=== PATIENT | male | born 1995 ===

== ENCOUNTER 2020-09-03 17:06 | Outpatient (REF) | payer OTHER, SELFPAY | END 2020-09-03 17:07 | disposition home or self-care (01) | LOC: HO.LAB 17:06 | PROVIDERS: Visit Provider Internal Medicine | DX: Z20.828 Contact with and (suspected) exposure to other viral communicable diseases (principal) | CPT/HCPCS: C9803; U0003 ==

== ENCOUNTER 2021-10-10 05:34 | Emergency (ER) | payer MEDICAID, SELFPAY ==
--- NOTE | ~2021-10-10 | XR_ITS ---
EXAMINATION: XR CHEST CLINICAL INFORMATION: Cough COMPARISON: 04/09/2020 TECHNIQUE: Frontal view of the chest was obtained. FINDINGS: The lungs are well expanded. There is no focal consolidation, edema, or effusion. No pneumothorax. The cardiomediastinal silhouette is within normal limits. No acute osseous abnormality. XR/XR chest 1V IMPRESSION: Clear lungs.
[2021-10-10 05:51] VITALS: BP 141/80; PULSE 83; RESP 16; TEMP 36.6; O2SAT 96; BMI 39.9
[2021-10-10 06:23] LABS: COVID-19 Test Negative (Negative); IDNOW Serial# 9DD0AD1C
--- NOTE | 2021-10-10 08:24 | ED_ITS ---
HPI - URI/Sore Throat General Chief Complaint: Upper Respiratory Symptoms Stated Complaint: headache, sore throat Time Seen by Provider: 10/10/21 08:08 Source: patient Mode of arrival: ambulatory Limitations: no limitations History of Present Illness HPI Narrative: Patient is a 25-year-old male with no significant medical history. He presents to the emergency department today for evaluation of a sore throat and cough for 2 weeks. The cough is intermittently productive of clear phlegm. Last night he developed a headache. He has not taken any medication for his pain nor cough. Denies fevers, chills, neck pain, vision changes, dizziness, lightheadedness, chest pain, palpitations, shortness of breath, difficulty breathing, nausea, vomiting, abdominal pain. Denies any known sick contacts, or exposure to COVID-19. Patient has been vaccinated for COVID-19 x 2. Patient has a past history of COVID-19 infection greater than 6 months ago. MD elicited complaint: cough, sore throat and other (headache) Onset (ago): week(s) Consistency: intermittent Severity: mild Description of mucous: clear Able to tolerate fluids by mouth: Yes Exacerbating factors: nothing Relieving factors: nothing Treatments prior to arrival: none Related Data Allergies Allergy/AdvReac Type Severity Reaction Status Date / Time No Known Allergies Allergy Verified 10/10/21 05:57 Review of Systems Review of Systems: Constitutional: No weight loss, fever, chills, weakness or fatigue. HEENT: + sore throat. No visual loss, blurred vision, double vision or yellow sclera. No hearing loss, sneezing, congestion, runny nose. Skin: No rash or itching. Cardiovascular: No chest pain, chest pressure or chest discomfort. No palpitations or pedal edema. Respiratory: + cough. No shortness of breath. Gastrointestinal: No anorexia, nausea, vomiting or diarrhea. No abdominal pain or blood in stool. Genitourinary: No burning micturition. No urinary frequency or incontinence. Neurologic: + headache. No dizziness, syncope, unilateral weakness, ataxia, numbness or tingling in the extremities. No change in bowel or bladder control. Musculoskeletal: No muscle pain, back pain, joint pain or stiffness. Psychiatric:No depression or anxiety. Endocrine: No polyuria or polydipsia. [facility] Past Medical History Attestation statement: The following information was validated with the patient. Source: old records reviewed Medical History COVID Social History Social History Advance Directives: No Advance Directives Information Provided: No Physical Exam Vital Signs: Vital Signs: Last Vital Signs Temp 97.8 F 10/10/21 05:51 Pulse 83 10/10/21 05:51 Resp 16 10/10/21 05:51 BP 141/80 H 10/10/21 05:51 Pulse Ox 96 10/10/21 05:51 BMI result Body Mass Index 39.9 Vital signs have been reviewed as normal and appeared to be correct. Blood pressure normal.? Heart rate normal.? Respiration rate normal. Temperature normal.? Oxygen saturation normal. Appearance: Alert.?Oriented to person, place and time. No acute distress.?Normal affect. Head: Normocephalic, atraumatic. No head, sinus or TMJ tenderness.? Eyes: Sclera white, conjunctiva pink. PERRL, 3 mm bilaterally. EOMi.?No Nystasmus. Ears: Bilateral ear canals clear, TM visible with good cone of light.? Nose: Nasal mucosa pink and moist with midline septum, nares patent bilaterally.? Mouth/ Throat: Oral mucosa pink and moist without lesions. Pharynx without exudate, tonsils symmetric, no adenopathy.?? Neck: Normal inspection.? Neck supple.?? CVS: Heart sounds normal. Normal heart rate and rhythm.? Pulses normal.?? Respiratory: No respiratory distress.? Lung sounds clear to auscultation bilaterally?? Abdomen: Soft and non-tender. Skin: Skin warm and dry.? Normal skin color.? Normal skin turgor.?? Extremities: No lower extremity edema.? Neuro: Moves all extremities spontaneously. Course Course Course Narrative: Patient is a 25-year-old male who presents to the emergency department with concerns about cough, sore throat, and headache. COVID-19 testing was performed which was negative. Chest x-ray reveals no focal consolidation, edema, or effusion. Given duration of his pharyngitis, received strep pyogenes SAROJ testing which was negative. Reviewed results with patient, discussed return precautions, [id number] treatment. Patient agreeable plan for discharge home, provided with a work note at his request. MDM - URI/Sore Throat Medical Records Attestation: I reviewed the patient's medical records. Lab Data Attestation: I reviewed the patient's lab results. Labs: Lab Results 10/10/21 10/10/21 Range/Units 05:58 08:24 COVID-19 (BRANDON) Negative (Negative) COVID-19 Clin Com See Note S. pyogenes GrpA SAROJ Negative (Negative) Discharge Plan Discharge Clinical Impression: Headache, Pharyngitis Patient Disposition: Home, Self-Care Instructions: Pharyngitis (ED), General Headache (ED) Additional Instructions: You were evaluated in the emergency department today for your concerns about a sore throat and headache that began earlier this morning. Your COVID-19 testing was negative. We tested you for strep throat, bacterial infection of the throat which was also negative. At this time you can use Tylenol or ibuprofen as needed for pain, throat lozenges and analgesics throat spray which can be purchased at the pharmacy. Please return to the emergency department with any new or worsening concerns, he may also follow-up with your primary care provider Stand Alone Forms: Work/School Release Discharge Date/Time: 10/10/21 09:30 Print Language: Chinese
[2021-10-10 08:46] LABS: IDNOW Serial# 9DD0AD1C; Strep A Nucleic Acid Negative (Negative)
== END 2021-10-10 09:30 | disposition home or self-care (01) ==
PROVIDERS: Nurse Practitioner Family; Emergency Provider Emergency Medicine Emergency Medical Services
DX: R51.9 Headache, unspecified (principal); J02.9 Acute pharyngitis, unspecified; Z20.822 Contact with and (suspected) exposure to COVID-19
CPT/HCPCS: 36415; 71045; 87635; 87651; 99283

== ENCOUNTER → 2021-12-20 13:19 | Outpatient (BNVA) | payer OTHER, SELFPAY | PROVIDERS: Referring Provider Family Medicine; Visit Provider Physician Assistant Surgical ==

== ENCOUNTER → 2022-01-29 08:38 | Outpatient (BNVA) | payer MEDICAID, SELFPAY | PROVIDERS: PCP Family Medicine; Referring Provider Family Medicine; Visit Provider Physician Assistant Surgical | DX: E66.9 Obesity, unspecified (principal); Z68.38 Body mass index [BMI] 38.0-38.9, adult | CPT/HCPCS: 99202 ==

== ENCOUNTER 2023-08-12 10:53 | Emergency (ER) | payer MEDICAID, SELFPAY ==
[2023-08-12 11:02] VITALS: BP 127/73; PULSE 98; RESP 18; TEMP 36.6; O2SAT 96; BMI 39.7
[2023-08-12 11:16] LABS: MANUAL DIFF FLAG NO
[2023-08-12 11:18] LABS: Basophils Absolute Auto 0.1 X10*3/uL (0.0-0.2); Basophils Percent Auto 0.7 % (0-2); Eosinophils Percent Auto 0.2 % (0-4); Hematocrit 44.9 % (42.0-52.0); Hemoglobin 16.1 g/dl (14.0-18.0); Imm Gran Abs Auto 0.05 X10*3/uL (0.00-0.03); Imm Gran Pct Auto 0.3 % (0.0-0.4); Lymphocytes Absolute Auto 1.3 X10*3/uL (1.2-4.9); Lymphocytes Percent Auto 8.3 % (20-40); Mean Corpuscular HGB Conc 35.9 g/dl (31.0-36.0); Mean Corpuscular Hemoglobin 30.5 pg (27.0-33.0); Mean Platelet Volume 12.2 fL (9.4-12.4); Monocytes Absolute Auto 0.8 X10*3/uL (0.1-1.2); Monocytes Percent Auto 4.9 % (2-11); Neutrophils Percent Auto 85.6 % (45-73); Platelet Count 173 X10*3/uL (160-400); Red Blood Count 5.28 X10*6/uL (4.60-5.80); Red Cell Distribution Width 11.3 % (11.0-16.0); White Blood Count 15.2 X10*3/uL (4.8-10.8)
[2023-08-12 11:32] LABS: Alanine Aminotransferase 38 U/L (0-40); Albumin Level 4.3 g/dL (3.5-5.0); Alkaline Phosphatase 95 U/L (39-117); Anion Gap 10 (12-20); Aspartate Amino Transferase 24 U/L (5-37); Bilirubin Total 0.5 mg/dL (0.0-1.0); Blood Urea Nitrogen 7 mg/dL (9-16); Calcium 9.2 mg/dL (8.4-10.2); Carbon Dioxide 22 mmol/L (22-29); Chloride 109 mmol/L (96-108); Creatinine Clr Calc Pharmacy 147.6; Estimated Glomerular Filt Rate > 60; Glucose Random 129 mg/dL (60-115); Potassium 4.3 mmol/L (3.3-5.1); Sodium 137 mmol/L (135-145); Total Protein 7.2 g/dL (6.5-8.0)
--- NOTE | 2023-08-12 13:58 | ED_ITS ---
HPI - Abdominal Pain General Chief Complaint: Abdominal Pain Stated Complaint: Stomach Pain Related Data Home Medications Medication Instructions Recorded Confirmed No Known Home Meds 12/20/21 01/29/22 Allergies Allergy/AdvReac Type Severity Reaction Status Date / Time No Known Allergies Allergy Verified 08/12/23 11:01 [facility] Past Medical History Medical History (Updated 08/12/23 @ 20:43 by Dora Lora NP) COVID Surgical History Hx of eye surgery Hx of hernia repair Family History Family History Mother Mental health disorder Father Alcoholism Sister No problems noted. Sister Mental health disorder Brother No problems noted. Brother No problems noted. Daughter No problems noted. Son ADHD Social History Alcohol intake: current Alcohol intake frequency: a few times a week Tobacco use type: Cigarette Advance Directives: No Advance Directives Information Provided: No Physical Exam ED Vital Signs: Vital Signs - 24 hr 08/12/23 11:02 08/12/23 15:10 Temperature 97.9 F 97.7 F Pulse Rate 98 90 Respiratory Rate 18 14 Blood Pressure 127/73 153/86 H Pulse Oximetry 96 98 Oxygen Delivery Method Room Air Room Air BMI result Body Mass Index 39.7 Course Course Course Narrative: This is a rapid medical exam. 27 yo male here with waking at 2am with abdominal pain, diarrhea, chills. Will obtain labs, UA. Defer additional HPi, ROS, PE to primary provider. VSS Medical Decision Making Lab Data 08/12/23 11:13 08/12/23 11:13 Labs: Lab Results 08/12/23 Range/Units 11:13 WBC 15.2 H (4.8-10.8) X10*3/uL RBC 5.28 (4.60-5.80) X10*6/uL Hgb 16.1 (14.0-18.0) g/dl Hct 44.9 (42.0-52.0) % MCV 85.0 (80.0-98.0) fL MCH 30.5 (27.0-33.0) pg MCHC 35.9 (31.0-36.0) g/dl RDW 11.3 (11.0-16.0) % Plt Count 173 (160-400) X10*3/uL MPV 12.2 (9.4-12.4) fL Immature Gran % (Auto) 0.3 (0.0-0.4) % Neut % (Auto) 85.6 H (45-73) % Lymph % (Auto) 8.3 L (20-40) % [place] % (Auto) 4.9 (2-11) % Eos % (Auto) 0.2 (0-4) % Baso % (Auto) 0.7 (0-2) % Lymph # (Auto) 1.3 (1.2-4.9) X10*3/uL [place] # (Auto) 0.8 (0.1-1.2) X10*3/uL Eos # (Auto) 0.0 (0.0-0.4) X10*3/uL Baso # (Auto) 0.1 (0.0-0.2) X10*3/uL Abs Immat Gran (auto) 0.05 H (0.00-0.03) X10*3/uL Absolute Neuts (auto) 13.0 H (2.0-8.3) x10*3/uL Absolute Nucleated RBC 0.000 (0.0-0.012) X10*3/uL Nucleated RBC % (auto) 0.0 (0.0-0.2) /100WBC Sodium 137 (135-145) mmol/L Potassium 4.3 (3.3-5.1) mmol/L Chloride 109 H (96-108) mmol/L Carbon Dioxide 22 (22-29) mmol/L Anion Gap 10 L (12-20) BUN 7 L (9-16) mg/dL Creatinine 0.91 (0.5-1.4) mg/dL Estim Creat Clear Calc 147.6 Estimated GFR > 60 Random Glucose 129 H (60-115) mg/dL Calcium 9.2 (8.4-10.2) mg/dL Total Bilirubin 0.5 (0.0-1.0) mg/dL AST 24 (5-37) U/L ALT 38 (0-40) U/L Alkaline Phosphatase 95 (39-117) U/L Total Protein 7.2 (6.5-8.0) g/dL Albumin 4.3 (3.5-5.0) g/dL Lipase 14 (8-78) U/L Discharge Plan Discharge Clinical Impression: Abdominal pain Patient Disposition: Left W/O Completing Treatment Prescriptions: No Action No Known Home Meds Discharge Date/Time: 08/12/23 16:35
[2023-08-12 14:23] LABS: Lipase 14 U/L (8-78)
[2023-08-12 15:10] VITALS: BP 153/86; PULSE 90; RESP 14; TEMP 36.5; O2SAT 98
== END 2023-08-12 16:35 | disposition left against medical advice (07) ==
PROVIDERS: Nurse Practitioner Family; Emergency Provider Emergency Medicine; PCP Family Medicine
DX: R10.9 Unspecified abdominal pain (principal); R19.7 Diarrhea, unspecified; R68.83 Chills (without fever)
CPT/HCPCS: 36415; 80053; 83690; 85025; 99281; 99283

== ENCOUNTER 2023-10-08 12:30 | Emergency (ER) | payer OTHER, MEDICAID, SELFPAY ==
[2023-10-08 12:59] VITALS: BP 133/77; PULSE 103; RESP 19; TEMP 36.6; O2SAT 99; BMI 39.4
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
[2023-10-08 15:21] VITALS: BP 132/74; PULSE 98; RESP 16; TEMP 36.5; O2SAT 100
[2023-10-08] MEDS: Acetaminophen 325 MG TABLET 975 MG PO (15:25)
[2023-10-08 15:44] LABS: MANUAL DIFF FLAG NO
[2023-10-08 15:45] LABS: Basophils Percent Auto 1.1 % (0-2); Eosinophils Percent Auto 2.2 % (0-4); Hematocrit 44.7 % (42.0-52.0); Hemoglobin 15.7 g/dl (14.0-18.0); Imm Gran Pct Auto 0.4 % (0.0-0.4); Lymphocytes Percent Auto 25.2 % (20-40); Mean Corpuscular HGB Conc 35.1 g/dl (31.0-36.0); Mean Corpuscular Hemoglobin 30.4 pg (27.0-33.0); Mean Corpuscular Volume 86.5 fL (80.0-98.0); Mean Platelet Volume 12.4 fL (9.4-12.4); Monocytes Percent Auto 8.4 % (2-11); Neutrophils Absolute Auto 5.1 x10*3/uL (2.0-8.3); Neutrophils Percent Auto 62.7 % (45-73); Platelet Count 194 X10*3/uL (160-400); Red Blood Count 5.17 X10*6/uL (4.60-5.80); Red Cell Distribution Width 11.2 % (11.0-16.0); White Blood Count 8.1 X10*3/uL (4.8-10.8)
[2023-10-08 15:46] LABS: Basophils Absolute Auto 0.1 X10*3/uL (0.0-0.2); Eosinophils Absolute Auto 0.2 X10*3/uL (0.0-0.4); Imm Gran Abs Auto 0.03 X10*3/uL (0.00-0.03); Monocytes Absolute Auto 0.7 X10*3/uL (0.1-1.2)
[2023-10-08 16:00] LABS: Alanine Aminotransferase 44 U/L (0-40); Albumin Level 4.1 g/dL (3.5-5.0); Alkaline Phosphatase 91 U/L (39-117); Anion Gap 13 (12-20); Aspartate Amino Transferase 26 U/L (5-37); Bilirubin Total 0.3 mg/dL (0.0-1.0); Blood Urea Nitrogen 12 mg/dL (9-16); Calcium 8.7 mg/dL (8.4-10.2); Carbon Dioxide 24 mmol/L (22-29); Chloride 109 mmol/L (96-108); Creatinine Clr Calc Pharmacy 159.2; Estimated Glomerular Filt Rate > 60; Glucose Random 112 mg/dL (60-115); Lipase 29 U/L (8-78); Potassium 4.1 mmol/L (3.3-5.1); Sodium 142 mmol/L (135-145); Total Protein 6.7 g/dL (6.5-8.0)
[2023-10-08 16:01] LABS: COVID-19 Test Negative (Negative); IDNOW Serial# 08D9AD1C; IDNOW Serial# 152EDE1D; Influenza A Negative (Negative); Influenza B2 Negative (Negative)
[2023-10-08 20:42] VITALS: BP 136/62; PULSE 82; RESP 14; TEMP 36.5; O2SAT 97
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
[2023-10-08 21:25] LABS: Appearance Urine Clear; Color Urine Yellow; Glucose Urine UA Negative (Negative); Leukocyte Esterase Urine Negative (Negative); Nitrite Urine Negative (Negative); Specific Gravity - Urine >= 1.030 (1.005-1.025); Urine Blood Negative (Negative); Urine Ketones Negative (Negative); Urine Protein Negative (Neg-Trace)
[2023-10-08 21:27] LABS: Bacteria Urine None Seen (None Seen); Hyaline Casts Urine 0-2 /LPF (0-2); RBC Urine 0-2 /HPF (0-2); Squamous Epithelial Cell Urine 0-2 /HPF (0-2); WBC Urine 0-5 /HPF (0-5)
[2023-10-08] MEDS: Ketorolac Tromethamine 30 MG/ML VIAL IM (21:33)
[2023-10-08] MEDS: Prochlorperazine Edisylate 10 MG/2 ML VIAL IM (21:33)
[2023-10-08] MEDS: Azithromycin 500 MG TABLET PO (21:33)
== END 2023-10-08 22:32 | disposition home or self-care (01) ==
PROVIDERS: Physician Assistant; Emergency Provider Emergency Medicine; PCP Family Medicine
DX: S13.4XXA Sprain of ligaments of cervical spine, initial encounter (principal); M54.50 Low back pain, unspecified; M54.2 Cervicalgia; R19.7 Diarrhea, unspecified; V43.52XA Car driver injured in collision with other type car in traffic accident, initial encounter; Y93.9 Activity, unspecified; Y92.410 Unspecified street and highway as the place of occurrence of the external cause; Y99.9 Unspecified external cause status; Z11.52 Encounter for screening for COVID-19; Z79.899 Other long term (current) drug therapy
CPT/HCPCS: 80053; 81001; 83690; 85025; 87502; 87635; 96372; 99284; J0737; J1885

== ENCOUNTER 2023-10-28 15:12 | Outpatient (REF) | payer OTHER, SELFPAY ==
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
== END 2023-10-28 15:13 | disposition home or self-care (01) ==
LOC: HO.HHCX 15:12
PROVIDERS: Visit Provider Internal Medicine
DX: M54.2 Cervicalgia (principal); M54.50 Low back pain, unspecified; G89.29 Other chronic pain
CPT/HCPCS: 72040; 72110

== ENCOUNTER 2024-01-20 07:54 | Emergency (ER) | payer MEDICAID, SELFPAY ==
--- NOTE | ~2024-01-20 | XR_ITS ---
EXAMINATION: XR SHOULDER, LEFT CLINICAL INFORMATION: Left shoulder injury, pain COMPARISON: None available. TECHNIQUE: AP external rotation, Grashey, scapular Y, and axillary views of the left shoulder. FINDINGS: There is cephalad migration of the clavicle relative to acromion with small osseous fragments most likely chronic in nature possibly due to or os acromiale. No acute fractures identified. The fragments seen at the distal end of the clavicle are smooth and ill-defined. Follow-up by CT scan may be helpful and confirmatory. Left glenohumeral joint is unremarkable. Soft tissues are otherwise unremarkable. XR/XR shoulder LT min 2V IMPRESSION: Possibly the result of chronic trauma of the left acromioclavicular joint with small osseous fragments versus fragments and os acromiale.
--- NOTE | ~2024-01-20 | XR_ITS ---
EXAMINATION: XR WRIST, LEFT CLINICAL INFORMATION: Left wrist injury, pain COMPARISON: None available. TECHNIQUE: PA, lateral, and oblique views of the left wrist. FINDINGS: There is lucencies through the body of scaphoid suggestive for scaphoid fracture without displacement associated with mild soft tissue swelling. The rest of wrist is unremarkable. XR/XR wrist LT 2V IMPRESSION: Incomplete scaphoid fracture
--- NOTE | ~2024-01-20 | XR_ITS ---
EXAMINATION: XR ELBOW, LEFT CLINICAL INFORMATION: Elbow pain following trauma COMPARISON: None available. TECHNIQUE: AP, lateral, and oblique views of the left elbow. FINDINGS: The bones and soft tissues are normal. No fracture or joint effusion. Alignment is anatomic. Joint spaces are maintained. XR/XR elbow LT 2V IMPRESSION: Normal left elbow.
[2024-01-20 08:04] VITALS: BP 127/66; PULSE 86; RESP 17; TEMP 36.6; O2SAT 95; BMI 40.0
[2024-01-20] MEDS: Ketorolac Tromethamine 30 MG/ML VIAL IM (09:45)
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
[2024-01-20] MEDS: Diphth,Pertus(ACell),Tet Adult 0.5 ML SYRINGE IM (11:03)
[2024-01-20] MEDS: Bacitracin Oint 0.9 GM PACKET 1 APPL TOPICAL (11:03)
--- NOTE | 2024-01-20 11:06 | PC.NURSE ---
thumb spica applied to left wrist, bacitracin applied to multiple small abrasions, tdap given right deltoid, pt tolerated well.
[2024-01-20 12:00] VITALS: BP 127/66; PULSE 86; RESP 17; TEMP 36.6; O2SAT 95
== END 2024-01-20 12:01 | disposition home or self-care (01) ==
PROVIDERS: Emergency Provider Emergency Medicine; PCP Family Medicine
DX: S62.002A Unspecified fracture of navicular [scaphoid] bone of left wrist, initial encounter for closed fracture (principal); S80.212A Abrasion, left knee, initial encounter; S50.312A Abrasion of left elbow, initial encounter; W05.1XXA Fall from non-moving nonmotorized scooter, initial encounter; M25.512 Pain in left shoulder; M25.522 Pain in left elbow; M25.562 Pain in left knee; Y93.89 Activity, other specified; Y92.414 Local residential or business street as the place of occurrence of the external cause; Y99.9 Unspecified external cause status; Z23 Encounter for immunization
CPT/HCPCS: 29125; 73030; 73070; 73100; 90471; 90715; 96372; 99283; 99284; J1885

== ENCOUNTER 2024-01-28 09:01 | Outpatient (AMB) | payer MEDICAID, SELFPAY ==
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
[2024-01-28 09:20] VITALS: BMI 39.9
== END 2024-01-28 11:33 | disposition home or self-care (01) ==
PROVIDERS: PCP Family Medicine; Visit Provider Physician Assistant
DX: S62.002A Unspecified fracture of navicular [scaphoid] bone of left wrist, initial encounter for closed fracture (principal); S52.502A Unspecified fracture of the lower end of left radius, initial encounter for closed fracture
CPT/HCPCS: 99204

== ENCOUNTER 2024-01-28 10:15 | Outpatient (REF) | payer MEDICAID, SELFPAY ==
--- NOTE | ~2024-01-28 | XR_ITS ---
EXAMINATION: XR WRIST, LEFT CLINICAL INFORMATION: Pain in unspecified wrist. COMPARISON: 01/20/2024 TECHNIQUE: 4 views of the left wrist. FINDINGS: Previously identified linear lucency along the body of the scaphoid suggestive of nondisplaced fracture redemonstrated. Alignment is maintained. Bone mineralization is normal. There is subtle, slightly increased sclerosis characteristic of bridging callus across the fracture line at the mid body of the scaphoid. XR/XR wrist LT w scaphoid IMPRESSION: Healing nondisplaced fracture of the mid body of the scaphoid.
== END 2024-01-28 10:16 | disposition home or self-care (01) ==
LOC: HO.HOSX 10:15
PROVIDERS: Visit Provider Physician Assistant
DX: S62.002A Unspecified fracture of navicular [scaphoid] bone of left wrist, initial encounter for closed fracture (principal); S52.502A Unspecified fracture of the lower end of left radius, initial encounter for closed fracture
CPT/HCPCS: 73110; 99212

== ENCOUNTER 2024-02-10 08:59 | Outpatient (REF) | payer MEDICAID, SELFPAY ==
--- NOTE | ~2024-02-10 | CT_ITS ---
EXAMINATION: CT WRIST WITHOUT CONTRAST, LEFT CLINICAL INFORMATION: Incomplete left scaphoid fracture. COMPARISON: X-ray 01/28/2024, 01/20/2024. TECHNIQUE: Axial imaging. Sagittal and coronal reconstructions. FINDINGS: There is a predominantly transverse fracture in the scaphoid at the junction of the middle and distal third of the scaphoid. There is mild bony displacement/cortical offset along the volar aspect. There is mild distraction of the fracture plane, measuring up to approximately 2 mm along the dorsal cortical surface. Portion of the fracture plane has hazy densities, suggesting mild callus formation. No significant osseous bridging is identified. The density of the proximal pole of the scaphoid is slightly more prominent as compared to the distal pole. Scapholunate distance is maintained. No additional fracture is identified. Small degenerative cyst in the distal ulna. Carpal row alignment is maintained. Joint spaces are maintained. Mild edema in the volar soft tissues of the wrist. Tendons grossly appear intact, however, evaluation is limited by CT. CT/CT wrist LT wo IV con IMPRESSION: Scaphoid waist fracture, with minimal distraction/displacement. Mild callus formation, with no significant osseous bridging is evident. The density of the proximal scaphoid pole is slightly more prominent as compared to the distal pole. Recommend clinical management and follow-up radiographs for reassessment.
== END 2024-02-10 09:00 | disposition home or self-care (01) ==
LOC: HO.CT 08:59
PROVIDERS: PCP Family Medicine; Visit Provider Physician Assistant
DX: S62.002A Unspecified fracture of navicular [scaphoid] bone of left wrist, initial encounter for closed fracture (principal)
CPT/HCPCS: 73200

== ENCOUNTER 2024-02-23 11:56 | Outpatient (AMB) | payer MEDICAID, SELFPAY ==
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
== END 2024-02-23 15:00 ==
PROVIDERS: PCP Family Medicine; Visit Provider Orthopaedic Surgery
DX: S62.002A Unspecified fracture of navicular [scaphoid] bone of left wrist, initial encounter for closed fracture (principal)
CPT/HCPCS: 99214

== ENCOUNTER → 2024-02-23 11:56 | Outpatient (BNVA) | payer MEDICAID, SELFPAY | PROVIDERS: PCP Family Medicine; Visit Provider Orthopaedic Surgery | DX: S62.002D Unspecified fracture of navicular [scaphoid] bone of left wrist, subsequent encounter for fracture with routine healing (principal) | CPT/HCPCS: 99212 ==

== ENCOUNTER 2024-02-29 07:58 | Day surgery (SDC) | payer MEDICAID, SELFPAY ==
--- NOTE | 2024-02-25 13:49 | HO.ANESPROP2 ---
Documented by User: Danica Wang NP 02/25/24 13:49 HPI - Anesthesia Eval Consult details Narrative: 28yo M for Left Scaphoid ORIF PMFSH Active Problems Active Problems: All Active Problems Fracture of left distal radius (Acute) Fracture of scaphoid of left wrist (Acute) Obesity (BMI 30-39.9) (Acute) Past Medical History Medical History (Updated 02/29/24 @ 08:14 by Paris Terry RN) Hypoglycemia COVID Family History Family History Mother Mental health disorder Father Alcoholism Sister No problems noted. Sister Mental health disorder Brother No problems noted. Brother No problems noted. Daughter No problems noted. Son ADHD Surgical History Surgical History Hx of eye surgery Hx of hernia repair Social History Social History Alcohol intake: current Alcohol intake frequency: holidays/special occasions only Patient Tobacco Use Status: Former Tobacco user Tobacco use type: Cigarette Use of substances other than those prescribed or required for medical reasons: Yes Substance Use Type: Marijuana Substance Use Frequency: Daily Are you DNR?: No Advance Directives: No Advance Directives Information Provided: Yes Meds Allergies Allergy/AdvReac Type Severity Reaction Status Date / Time No Known Allergies Allergy Verified 02/29/24 08:14 Home Medications ?Medication ?Instructions ?Recorded ?Confirmed ?Last Taken ?Type No Known Home Meds 01/28/24 02/29/24 Unknown History Assessment and Plan Assessment Anesthesia Assessment: Chart Reviewed Documented by User: Jennifer Gill MD 02/29/24 13:18 PMFSH Past Medical History Medical History (Updated 02/29/24 @ 08:14 by Paris Terry RN) Hypoglycemia COVID Family History Family History Mother Mental health disorder Father Alcoholism Sister No problems noted. Sister Mental health disorder Brother No problems noted. Brother No problems noted. Daughter No problems noted. Son ADHD Family history of problems with anesthesia: No Surgical History Surgical History Hx of eye surgery Hx of hernia repair History of Problems with Anesthesia: No Social History Social History Alcohol intake: current Alcohol intake frequency: holidays/special occasions only Patient Tobacco Use Status: Former Tobacco user Tobacco use type: Cigarette Use of substances other than those prescribed or required for medical reasons: Yes Substance Use Type: Marijuana Substance Use Frequency: Daily Are you DNR?: No Advance Directives: No Advance Directives Information Provided: Yes Meds Allergies Allergy/AdvReac Type Severity Reaction Status Date / Time No Known Allergies Allergy Verified 02/29/24 08:14 Home Medications ?Medication ?Instructions ?Recorded ?Confirmed ?Last Taken ?Type No Known Home Meds 01/28/24 02/29/24 Unknown History Exam Airway TM Dist: >3cm Neck ROM: Full Heart: rrr Lungs: cta Assessment and Plan Assessment Anesthesia Assessment: Anesthesia Plan Discussed Final Anesthetic Review Family History of Problems with Anesthesia: No History of Problems with Anesthesia: No NPO: Yes ASA Class: II Final Preanesthetic Review: No Changes in Pt Med Stat, Meds/Allgs Chart Reviewed, Consent Obtained/Reviewed and Anes Risks/Benef Reviewed Patient Risk: Low Procedure Risk: Low Anesthetic Plan Anesthetic Plan: GA and Regional Block Disposition: Standard PACU
[2024-02-29] VITALS (7 sets, daily range): BP systolic 116–162; BP diastolic 74–91; PULSE 74–100; RESP 15–19; TEMP 36.1–37; O2SAT 92–99; BMI 39.7
--- NOTE | ~2024-02-29 | FL_ITS ---
EXAMINATION: XR FLUOROSCOPY WITH IMAGES CLINICAL INFORMATION: Left scaphoid ORIF. COMPARISON: None available. TECHNIQUE: Fluoroscopy Supervised By: Dr. Owusu. Fluoroscopy Time: 55.04 seconds. Cumulative Dose: 2.4032 mGy. DAP: 0.1452 Gycm2. Images: 8. FINDINGS: Intraoperative fluoroscopy and spot films were performed during a procedure in the OR. Images demonstrate a fracture of the scaphoid waist. A needle is seen in the scapholunate joint. Final imaging demonstrates screw through the scaphoid. Please see Dr. Owusu' report for complete details. FL/FL guidance in OR IMPRESSION: Intraoperative fluoroscopy and spot films were obtained. Please see Dr. Owusu' report for complete details.
[2024-02-29] MEDS: Lactated Ringers 1,000 ML 100 ML IVCONT (08:43)
[2024-02-29 08:49] LABS: Glucose, Whole Blood 99 mg/dL (60-115)
--- NOTE | 2024-02-29 09:37 | PC.NURSE ---
pt states when he doesn't eat breakfast his sugar gets low and was worried about it. so sugar checked and 99.
[2024-02-29 10:15] LABS: Glucose, Whole Blood 91 mg/dL (60-115)
--- NOTE | 2024-02-29 10:17 | MHC.SHP ---
Documented by User: GALILEO Valladares 02/29/24 10:19 Pre-Procedural Eval Section A - 24 Hr Update-Section A only Date of Service: 02/29/24 The patient is an INPATIENT: No Changes since office visit: No Cold of Flu in the past 2 weeks, No New Medical Problems, No Changes in Medication and No Patient answered all questions The patient has been examined within 24 hours of the surgical procedure. The History & Physical has been completed within 30 days and I have reviewed it.: Yes Section B - Complete if H&P > 30 days Chief Complaint: Unspecified fracture of navicular [scaphoid] bone Allergies: Allergies Allergy/AdvReac Type Severity Reaction Status Date / Time No Known Allergies Allergy Verified 02/29/24 08:14 Plan I have reviewed the history and physical and performed a pertinent physical examination on my patient. No changes have occurred unless specified. Time Spent With Patient Time: Total time managing care of this patient today ____ minutes. Documented by User: Valerie Owusu MD 02/29/24 10:19 Pre-Procedural Eval Section A - 24 Hr Update-Section A only Date of Service: 02/29/24 Section B - Complete if H&P > 30 days Chief Complaint: Unspecified fracture of navicular [scaphoid] bone
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
[2024-02-29 13:48] LABS: Glucose, Whole Blood 117 mg/dL (60-115)
[2024-02-29 13:48] LABS: Glucose, Whole Blood 121 mg/dL (60-115)
[2024-02-29 14:07] LABS: Glucose, Whole Blood 163 mg/dL (60-115)
[2024-02-29] MEDS: ondansetron HCL 4 MG/2 ML VIAL IVPUSH (14:46)
--- NOTE | 2024-02-29 15:17 | HO.INF ---
PATIENT REPORTED NAUSEA IN DC AREA. DR. SUMNER (ANESTHESIOLOGIST) ASSESSED AND PATIENT GIVEN ZOFRAN SL PER ORDER. PATIENT FELT BETTER IN APPROXIMATELY 10 TO 15 MIN. PATIENT DC'D HOME.
--- NOTE | 2024-02-29 15:20 | HO.INF ---
PATIENT WAS AWAKE, A/O X'S 3, PATIENT NOT DIAPHORETIC, COLOR WNL. PATIENT SPOKE CLEARLY.
== END 2024-02-29 15:21 | disposition home or self-care (01) ==
PROVIDERS: PCP Family Medicine; Visit Provider Orthopaedic Surgery
PROC: (CPT 25628; principal; 2024-02-29 09:40)
DX: S62.002A Unspecified fracture of navicular [scaphoid] bone of left wrist, initial encounter for closed fracture (principal); W05.1XXA Fall from non-moving nonmotorized scooter, initial encounter; Y93.89 Activity, other specified; Y92.9 Unspecified place or not applicable; Y99.9 Unspecified external cause status
CPT/HCPCS: 25628; 82947; C1713; J0131; J0665; J0690; J1100; J2250; J2405; J2704; J3010

== ENCOUNTER → 2024-02-29 07:58 | Outpatient (BNV) | payer MEDICAID, SELFPAY | PROVIDERS: PCP Family Medicine; Visit Provider Orthopaedic Surgery | DX: S62.024A Nondisplaced fracture of middle third of navicular [scaphoid] bone of right wrist, initial encounter for closed fracture (principal) | CPT/HCPCS: 25628 ==

== ENCOUNTER 2024-03-09 09:46 | Outpatient (REF) | payer MEDICAID, SELFPAY ==
--- NOTE | ~2024-03-09 | XR_ITS ---
EXAMINATION: XR LEFT WRIST CLINICAL INFORMATION: Pain in left wrist. TECHNIQUE: 4 views of the left wrist. COMPARISON: CT 02/10/2024, X-ray 01/28/2024 and 01/20/2024. FINDINGS: Status post placement of a screw transfixing previously demonstrated minimally displaced, transverse fracture at the scaphoid waist. There is lucency surrounding the mid to distal aspect of the screw. As previously noted, the proximal scaphoid pole appears slightly more prominent in density compared to the distal pole, although CT scan is more sensitive for evaluation of this and this was better demonstrated on CT scan of 02/10/2024. XR/XR wrist LT w scaphoid IMPRESSION: 1. Status post placement of a screw transfixing previously demonstrated minimally displaced transverse fracture at the scaphoid waist. There is lucency surrounding the [id number]-[id number] aspect of the screw. As previously noted, the proximal scaphoid pole appears slightly more prominent in density compared to the distal pole, although CT scan is more sensitive for evaluation of this and this was better demonstrated on CT scan of 02/10/2024. 2. CT scan could be considered for further evaluation
== END 2024-03-09 09:47 | disposition home or self-care (01) ==
LOC: HO.HOSX 09:46
PROVIDERS: Visit Provider Orthopaedic Surgery
DX: S62.002D Unspecified fracture of navicular [scaphoid] bone of left wrist, subsequent encounter for fracture with routine healing (principal)
CPT/HCPCS: 73110; 99212

== ENCOUNTER 2024-03-09 13:41 | Outpatient (AMB) | payer MEDICAID, SELFPAY ==
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
[2024-03-09 14:23] VITALS: BMI 39.2
== END 2024-03-09 15:03 | disposition home or self-care (01) ==
PROVIDERS: PCP Family Medicine; Visit Provider Orthopaedic Surgery
DX: S62.002A Unspecified fracture of navicular [scaphoid] bone of left wrist, initial encounter for closed fracture (principal)
CPT/HCPCS: 99024

== ENCOUNTER 2024-04-05 08:03 | Outpatient (REF) | payer MEDICAID, SELFPAY ==
--- NOTE | ~2024-04-05 | XR_ITS ---
EXAMINATION: XR LEFT WRIST CLINICAL INFORMATION: Pain in left wrist. TECHNIQUE: 4 views of the left wrist. COMPARISON: CT 02/10/2024, X-ray 03/09/2024, 01/28/2024 and 01/20/2024. FINDINGS: Redemonstration of screw transfixing previously demonstrated minimally displaced transverse fracture at the scaphoid waist. There has been some interval bridging callus formation. Redemonstration of lucency surrounding the [id number] aspect of the screw. As previously noted, proximal scaphoid pole appears slightly more prominent in density when compared to the distal pole, although CT remains more sensitive for evaluation on CT scan of February 10, 2024. XR/XR wrist LT w scaphoid IMPRESSION: 1. Redemonstration of screw transfixing previously demonstrated minimally displaced transverse fracture at the scaphoid waist. There has been some interval bridging callus formation. 2. Redemonstration of lucency surrounding the [id number]-pk-gasgbz aspect of the screw. As previously noted, proximal scaphoid pole appears slightly more prominent in density when compared to the distal pole, although CT remains more sensitive for evaluation on CT scan of February 10, 2024.
== END 2024-04-05 08:04 | disposition home or self-care (01) ==
LOC: HO.HOSX 08:03
PROVIDERS: Visit Provider Orthopaedic Surgery
DX: M25.532 Pain in left wrist (principal); S62.002D Unspecified fracture of navicular [scaphoid] bone of left wrist, subsequent encounter for fracture with routine healing; X58.XXXD Exposure to other specified factors, subsequent encounter; Z98.890 Other specified postprocedural states
CPT/HCPCS: 29075; 73110; 99212

== ENCOUNTER 2024-04-05 10:03 | Outpatient (AMB) | payer MEDICAID, SELFPAY ==
--- NOTE | 2024-04-05 10:49 | MHC.OFFVIS ---
Intake Visit Reasons: PO LT Scaphoid ORIF 1 month f/u 02/29/24 AR Intake Note: Jamal 28 year old right hand dominant male presents today for his post operative visit for his left Scaphoid ORIF 02/29/24 AR. Patient reports he is having stiffness in his left thumb since the cast was removed. He states he is doing well, no pain at the moment. Chiropractic Doctor Required: Yes Chiropractic Doctor Language: Home Aid Name: [id number] Allergies No Known Allergies Allergy (Verified 04/05/24 10:50) Medication List - Last Reconciled 04/05/24 by Ubaldo Buck PA-C No Known Home Meds HPI HPI PO LT Scaphoid ORIF 1 month f/u 02/29/24 AR: Details: 28-year-old right hand dominant male who returns to the office today for post-op left scaphoid ORIF, 02/29/[address] Owusu. He states he has stiffness in his left thumb since her cast was removed. He currently states he has no pain in his wrist and is doing well overall. He has no other concerns today. [facility] Medical History (Updated 02/29/24 @ 08:14 by Paris Terry RN) Hypoglycemia COVID Surgical History Hx of eye surgery Hx of hernia repair Family History Mother Mental health disorder Father Alcoholism Sister No problems noted. Sister Mental health disorder Brother No problems noted. Brother No problems noted. Daughter No problems noted. Son ADHD Social History Alcohol intake: current Alcohol intake frequency: holidays/special occasions only Patient Tobacco Use Status: Former Tobacco user Tobacco use type: Cigarette Substance Use Type: Marijuana Current occupational status: unemployed Review of Systems Const All systems reviewed & are unremarkable except as noted in HPI and below Physical Exam Extrem Other: Left hand: Normal to inspection. Surgical site is well healed. She has mild tenderness at the base of the thumb. NVI. Office Procedures Casting/Splints 34415-Uhig/Wrist Cast Application Procedure code (CPT) selection complete Assessment & Plan Assessment & Plan (1) Fracture of scaphoid of left wrist: Code(s): S62.002A - Unspecified fracture of navicular [scaphoid] bone of left wrist, initial encounter for closed fracture Category: Medical Qualifiers: Encounter type: initial encounter Scaphoid bone location: unspecified portion of scaphoid Fracture type: closed Fracture alignment: nondisplaced Qualified Code(s): S62.002A - Unspecified fracture of navicular [scaphoid] bone of left wrist, initial encounter for closed fracture Plan He was placed in a short arm thumb spica cast for the next 6 weeks. He will continue with smoking cessation. He will avoid any type of lifting, pushing, pulling, or carrying more than a cellphone. I did stress the importance of not smoking and the effects it can have on bone healing. He does express understanding and I would like to see him back in 6 weeks with cast off, x-rays and Dr. Owusu, sooner if needed. Orders: Orders XR wrist LT w scaphoid Today M25.532 - Pain in left wrist Patient Instructions: Scribed for Ubaldo Buck PA-C, by Hector Anderson medical collections representative, on 04/05/2024 at 10:30 AM EST.? I, Ubaldo Buck PA-C, have personally reviewed and agree with the information entered by the scribe. Coding Level of Care Code Global (35663) Diagnoses Closed nondisplaced fracture of scaphoid of left wrist, unspecified portion of scaphoid, initial encounter S62.002A Encounter type: initial encounter Scaphoid bone location: unspecified portion of scaphoid Fracture type: closed Fracture alignment: nondisplaced CPT Codes Casting - CPT: 84794-Dlsp/Wrist Cast Application ([id number])
== END 2024-04-05 11:48 | disposition home or self-care (01) ==
PROVIDERS: PCP Family Medicine; Visit Provider Physician Assistant
DX: S62.002A Unspecified fracture of navicular [scaphoid] bone of left wrist, initial encounter for closed fracture (principal)
CPT/HCPCS: 29075; 99024

== ENCOUNTER 2024-04-16 20:26 | Emergency (ER) | payer MEDICAID, SELFPAY ==
--- NOTE | ~2024-04-16 | XR_ITS ---
EXAMINATION: XR SHOULDER, RIGHT CLINICAL INFORMATION: Shoulder pain COMPARISON: None available. TECHNIQUE: Three views of the right shoulder. FINDINGS: The bones and soft tissues are normal. No fracture. Glenohumeral and acromioclavicular alignment is anatomic with normal joint space. No abnormal soft tissue calcifications. XR/XR shoulder RT min 2V IMPRESSION: Normal right shoulder radiographs.
--- NOTE | 2024-04-16 20:28 | ED_ITS ---
HPI - Extremity Injury (Upper) General Chief Complaint: General Medical Stated Complaint: Right shoulder pain/ left hand cast change Time Seen by Provider: 04/16/24 21:54 Source: patient, RN notes reviewed, old records reviewed and cardiac catheterization technologist Mode of arrival: ambulatory Limitations: no limitations History of Present Illness ED Provider: Vickie HPI narrative: 20-year-old male presents for evaluation of she was separate complaints. He complains of right shoulder pain. He states that 4 days ago he was trying to ?inflate a life vest with a pump. ? He reports a repeated pushing and pulling action while using the pump He has pain to his right anterior shoulder when raising his arm above his head He also has a short-arm thumb spica splint due to a scaphoid fracture sustained a month ago. He had corrective surgery He saw orthopedics on 04/05/2024 and he had his cast changed with a plan to keep it on for another 6 weeks from that date. The patient reports that he got the cast wet today and he wants it changed ?so that it does not smell tomorrow. ? Related Data Home Medications ?Medication ?Instructions ?Recorded ?Confirmed No Known Home Meds 04/05/24 04/05/24 Allergies Allergy/AdvReac Type Severity Reaction Status Date / Time No Known Allergies Allergy Verified 04/16/24 20:31 Review of Systems Constitutional: Constitutional: Denies body ache(s), Denies chills and Denies fever(s) ENT: Denies dizziness Cardiovascular: Cardiovascular: Denies chest pain Musculoskeletal: Musculoskeletal: Reports arthralgias, Denies joint swelling and Reports limited range of motion Neurologic: Denies dizziness PMFSH Past Medical History Medical History (Updated 04/16/24 @ 22:32 by Gino Johnston) Hypoglycemia COVID Surgical History Hx of eye surgery Hx of hernia repair Family History Family History Mother Mental health disorder Father Alcoholism Sister No problems noted. Sister Mental health disorder Brother No problems noted. Brother No problems noted. Daughter No problems noted. Son ADHD Social History Social History Alcohol intake: current Alcohol intake frequency: holidays/special occasions only Patient Tobacco Use Status: Former Tobacco user Tobacco use type: Cigarette Substance Use Type: Marijuana Advance Directives: No Advance Directives Information Provided: No Do you have a plan to hurt others: No Plan Current occupational status: unemployed Physical Exam Vital Signs: Vital Signs: Last Vital Signs Temp 98.5 F 04/16/24 20:30 Pulse 82 04/16/24 20:30 Resp 17 04/16/24 20:30 BP 129/84 04/16/24 20:30 Pulse Ox 97 04/16/24 20:30 O2 Del Method Room Air 04/16/24 20:30 BMI result Body Mass Index 40.7 Const: General: healthy appearing, comfortable, no acute distress, alert and awake Nutritional Appearance: well nourished Orientation/consciousness: patient oriented x3 HEENT: Head: Yes normocephalic and Yes atraumatic Eyes: Eyelids: Yes eyelids normal Conjunctivae: conjunctivae normal Sclerae: sclerae normal Corneas: corneas normal Pupils: Equal, round and reactive pupils present EOM: EOMs intact bilaterally Neck: Neck: Yes full ROM Resp: Effort & Inspection: normal respiratory effort, able to speak in complete sentences and not labored GI: Inspection: No distended Palpation (GI): Soft to palpation, not firm, nontender, no guarding and not rigid Skin: General skin exam: elasticity normal Neuro: General: patient oriented x3 Cranial nerves: Yes Equal, round and reactive pupils present and Yes Bilaterally intact EOM present Cognition (Neuro): normal cognition Extrem: Other: Patient has tenderness to the right anterior shoulder over the bicipital groove and mild tenderness over the acromioclavicular joint. There is no right posterior shoulder tenderness. He still has full range of motion of the right shoulder. There is a short arm volar splint on the left upper extremity. He is able to move all fingers with the exception of the thumb. He has good capillary refill there was no discoloration to the fingers on the left hand. Course Course Course Narrative: This is a Rapid Medical Exam performed in triage by Nakia Hastings PA-C. Full HPI, ROS and PE to be performed by primary ED provider. 28 year-old M w/ PMHx nondisplaced fracture of left scaphoid s/p ORIF on 02/29/2024 presenting to the ED c/o getting cast wet accidentally, states tried to cut cast off at home without success. Denies injury. Also reports pain to right shoulder x4 hours without known injury PE: Thumb spica noted to left upper extremity. Plan: Remove cast, apply splint, shoulder x-ray Medical Decision Making Medical Decision Making MDM Narrative: 28-year-old male presents for evaluation of right shoulder injury sustained from overuse injury 4 days ago. This is likely a shoulder strain related to repetitive motion. I offered the patient Toradol and he initially accepted. However upon learning that I would not remove his cast and change it just to prevent it from smelling tomorrow he decided to leave prior to any medication and the official reports of his x-ray. I tried to explain to the patient that removing his cast has a risk of the bones moving. The cast appears to be appropriately placed, it is not too tight and I do not see any indication to remove the cast at this time. I encouraged him to follow up with Orthopedics as soon as possible Differential Diagnosis Differential Diagnoses: The differential diagnosis associated with the presenta tion includes Shoulder strain shoulder Arthritis Rotator cuff injury Scaphoid fracture Independent Interpretation I performed an independent interpretation of an: Plain X-Ray Interpretation: No obvious fracture or dislocation of the right shoulder Discharge Plan Discharge Clinical Impression: Fracture of scaphoid of left wrist, Acute pain of right shoulder Patient Disposition: Home, Self-Care Instructions: Shoulder Pain (ED), Wrist Fracture in Adults (ED) Additional Instructions: You are leaving prior to receiving your official x-ray report. By my interpretation there is no apparent dislocation the fracture Prescriptions: No Action No Known Home Meds Print Language: Other
[2024-04-16 20:30] VITALS: BP 129/84; PULSE 82; RESP 17; TEMP 36.9; O2SAT 97; BMI 40.7
[2024-04-16 21:45] VITALS: BP 123/80; PULSE 80; RESP 18; TEMP 37.1; O2SAT 98
[2024-04-16 22:43] VITALS: BP 123/80; PULSE 80; RESP 18; TEMP 37.1; O2SAT 98
== END 2024-04-16 22:45 | disposition home or self-care (01) ==
PROVIDERS: Emergency Provider Emergency Medicine; PCP Family Medicine
DX: M25.511 Pain in right shoulder (principal); S62.002D Unspecified fracture of navicular [scaphoid] bone of left wrist, subsequent encounter for fracture with routine healing; X58.XXXD Exposure to other specified factors, subsequent encounter
CPT/HCPCS: 73030; 99283; 99284

== ENCOUNTER 2024-04-18 13:51 | Outpatient (AMB) | payer MEDICAID, SELFPAY ==
--- NOTE | 2024-04-18 13:55 | MHC.OFFVIS ---
Intake Visit Reasons: LT PO Scaphoid ORIF cast change 02/29/24 AR Intake Note: Jamal 28 year old right hand dominant male presents today for his post operative visit for his left Scaphoid ORIF 02/29/24 AR. Patient reports he was tubing with a couple friends and he got his cast wet. Patient reports no pain or discomfort at the moment. Web Merchant Required: Yes Web Merchant Language: Pancake Professional Name: [id number] Allergies No Known Allergies Allergy (Verified 04/18/24 14:08) HPI HPI LT PO Scaphoid ORIF cast change 02/29/24 AR: Details: 28-year-old male, who is Estonian speaking, presents in the office today for a cast change; 7 weeks status post eft scaphoid fracture open reduction internal fixation, which was performed on 02/29/[address] Owusu. The patient was last seen in the office on 04/05/24 by Ubaldo Buck PA-C, when he was placed into a short arm thumb spica with anticipation of remaining in it for six weeks. He was instructed to avoid any type of lifting, pushing, pulling, or carrying more than a cellphone.? ? The patient presented to the ED on 04/16/24 with a complaint of right shoulder pain and requesting a cast change of the left wrist due to getting it wet. He reported her injured the right shoulder while ?inflating a life vest? with a pushing and pulling motion. He also reports he ?accidently? got the cast wet on the left wrist. He reported in the ED he attempted to cut the cast off while at home but was unsuccessful. The patient left without treatment of the right shoulder after the ED informed him, they would not remove the cast due to risk of bone displacement.? ? While in the office today, the patient reports going tubbing with a few friends and got the cast wet. He denies pain or discomfort while in the office. ? PFSH Medical History (Updated 04/17/24 @ 00:00 by Mynor Lovett) Hypoglycemia COVID Surgical History Hx of eye surgery Hx of hernia repair Family History Mother Mental health disorder Father Alcoholism Sister No problems noted. Sister Mental health disorder Brother No problems noted. Brother No problems noted. Daughter No problems noted. Son ADHD Social History Alcohol intake: current Alcohol intake frequency: holidays/special occasions only Patient Tobacco Use Status: Former Tobacco user Tobacco use type: Cigarette Substance Use Type: Marijuana Current occupational status: unemployed Review of Systems Const All systems reviewed & are unremarkable except as noted in HPI and below Physical Exam Const General: cooperative, healthy appearing and no acute distress Resp Effort & Inspection: normal respiratory effort and able to speak in complete sentences Cardio Rate: regular rate Peripheral pulses: Peripheral pulses 2+ throughout GI Palpation (GI): Soft to palpation Skin Lesions: no lesions Rashes: no rashes Extrem Other: Left hand/wrist: Normal to inspection. No ecchymosis, erythema, or edema. Prior incision site is clean, dry, and intact. No scabbing. No open areas. Able to move all digits. Sensation intact. Radial pulse intact. Capillary refill is brisk. Office Procedures Casting/Splints 99136-Ggpy/Wrist Cast Application Procedure code (CPT) selection complete Assessment & Plan Assessment & Plan (1) Fracture of scaphoid of left wrist: Code(s): S62.002A - Unspecified fracture of navicular [scaphoid] bone of left wrist, initial encounter for closed fracture Category: Medical Qualifiers: Encounter type: initial encounter Fracture alignment: nondisplaced Fracture type: closed Scaphoid bone location: unspecified portion of scaphoid Qualified Code(s): S62.002A - Unspecified fracture of navicular [scaphoid] bone of left wrist, initial encounter for closed fracture Plan Mr. Noel Lundberg is a 28-year-old male, who is Estonian speaking, presents in the office today for a cast change; 7 weeks status post eft scaphoid fracture open reduction internal fixation, which was performed on 02/29/[address] Owusu. The patient was last seen in the office on 04/05/24 by Ubaldo Buck PA-C, when he was placed into a short arm thumb spica with anticipation of remaining in it for six weeks. He was instructed to avoid any type of lifting, pushing, pulling, or carrying more than a cellphone.? ? The patient presented to the ED on 04/16/24 with a complaint of right shoulder pain and requesting a cast change of the left wrist due to getting it wet. He reported her injured the right shoulder while ?inflating a life vest? with a pushing and pulling motion. He also reports he ?accidently? got the cast wet on the left wrist. He reported in the ED he attempted to cut the cast off while at home but was unsuccessful. The patient left without treatment of the right shoulder after the ED informed him, they would not remove the cast due to risk of bone displacement.? ? While in the office today, the patient reports going tubbing with a few friends and got the cast wet. He denies pain or discomfort while in the office.? ? The patient was placed in a new, custom-made, thumb spica cast. I re-educated the patient in the importance of keeping the cast clean, dry, and intact. I strongly encouraged the patient to remain away from bodies of water, such as but not limited to swimming pools or beaches. I educated the patient that should the cast become wet again he should contact the office immediately for a cast change. I informed him continuing to get the cast wet can be dangerous and cause skin breakdown and infection. Follow-up will be at his regularly scheduled appointment, or sooner if needed. ? Patient Instructions: Scribed by Jane Easton rn medical surgical, for iMchelle Casey PA-C on 04/18/2024 at 2:08 pm, EST.? Coding Level of Care Code Global (84996) Diagnoses Closed nondisplaced fracture of scaphoid of left wrist, unspecified portion of scaphoid, initial encounter S62.002A Encounter type: initial encounter Fracture alignment: nondisplaced Fracture type: closed Scaphoid bone location: unspecified portion of scaphoid CPT Codes Casting - CPT: 37058-Pgme/Wrist Cast Application ([id number])
== END 2024-04-18 14:46 | disposition home or self-care (01) ==
PROVIDERS: PCP Family Medicine; Visit Provider Physician Assistant
DX: S62.002A Unspecified fracture of navicular [scaphoid] bone of left wrist, initial encounter for closed fracture (principal)
CPT/HCPCS: 29125; 99024

== ENCOUNTER → 2024-04-18 13:51 | Outpatient (BNVA) | payer MEDICAID, SELFPAY | PROVIDERS: PCP Family Medicine; Visit Provider Physician Assistant | DX: S62.002D Unspecified fracture of navicular [scaphoid] bone of left wrist, subsequent encounter for fracture with routine healing (principal); X58.XXXD Exposure to other specified factors, subsequent encounter; Z98.890 Other specified postprocedural states | CPT/HCPCS: 99212 ==

== ENCOUNTER 2024-05-10 09:43 | Outpatient (AMB) | payer MEDICAID, SELFPAY ==
[2024-05-10 10:18] VITALS: BMI 40.7
--- NOTE | 2024-05-10 10:18 | MHC.OFFVIS ---
Vital Signs 05/10/24 10:18 Height 5 ft 7 in Weight 260 lb BMI 40.7 Intake Visit Reasons: PO LT Scaphoid ORIF 02/29/24 AR Intake Note: Jamal is a 28 yo right hand dominant male who presents today post operatively s/p left scaphoid ORIF done 02/29/[address] Owusu. Patient reports pain at the base of the left thumb but he is not taking anything for pain. Denies numbness, tingling, or locking on fingers. Reports his left thumb is staying stiff. Jewelry Sales Coordinator Required: No Allergies No Known Allergies Allergy (Verified 05/10/24 10:20) HPI HPI PO LT Scaphoid ORIF 02/29/24 AR: Details: Jamal is a 28 year old right hand dominant Chinese speaking man who returns S/P left scaphoid ORIF, DOS: 02/29/24 He says he is doing well overall. He was placed in a short-arm thumb spica cast last visit. He complains of stiffness in his left thumb, and pain at the base of the thumb He fell off a scooter in [place] on 01/19/24, fracturing his left scaphoid. He was seen by GALILEO Martinez on 01/28/24, placed in a velcro wrist splint, and a stat CT scan was ordered. He says he smokes Marijuana ~once or twice daily, he denies any cigarette use and says he no longer vapes. He has not been smoking since his injury, and says he has been working on quitting using Nicorette products, which he feels is going well. He is currently caring for his autistic sister. 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 [facility] Medical History (Updated 04/17/24 @ 00:00 by Mynor Lovett) Hypoglycemia COVID Surgical History Hx of eye surgery Hx of hernia repair Family History Mother Mental health disorder Father Alcoholism Sister No problems noted. Sister Mental health disorder Brother No problems noted. Brother No problems noted. Daughter No problems noted. Son ADHD Social History Alcohol intake: current Alcohol intake frequency: holidays/special occasions only Patient Tobacco Use Status: Former Tobacco user Tobacco use type: Cigarette Substance Use Type: Marijuana Current occupational status: unemployed Review of Systems Const All systems reviewed & are unremarkable except as noted in HPI and below Physical Exam Vital Signs: BMI result Body Mass Index 40.7 Const General: no acute distress and alert Orientation/consciousness: patient oriented x3 Neuro General: patient oriented x3 Extrem Other: Evaluation of Left Upper Extremity: The patient is alert, oriented, and in no acute distress Neuro: Median, Ulnar, Radial nerves motor and sensory intact and sensation is normal to the tips of all digits Vascular: Cap refill brisk ROM: He can make a fist and extend all his digits Some mild snuffbox tenderness today Radiographs: 3 views of the left wrist, plus a scaphoid view, were taken and viewed by me today in clinic. They show a left scaphoid fracture with satisfactory fracture alignment and position of headless compression screw Psych Appearance: grossly normal Affect: normal affect Attitude: cooperative Assessment & Plan Assessment & Plan (1) Fracture of scaphoid of left wrist: Code(s): S62.002A - Unspecified fracture of navicular [scaphoid] bone of left wrist, initial encounter for closed fracture Category: Medical Qualifiers: Encounter type: initial encounter Fracture alignment: nondisplaced Fracture type: closed Scaphoid bone location: unspecified portion of scaphoid Qualified Code(s): S62.002A - Unspecified fracture of navicular [scaphoid] bone of left wrist, initial encounter for closed fracture Plan Assessment & Plan: 1. Left scaphoid waist fracture, S/P ORIF DOI: 01/19/24 DOS: 02/29/24 Patient is a smoker who recently quit but is using Nicorette gum. The patient appears to be doing well post-operatively I educated him about the post-operative course I discussed activity modifications, He is to lift nothing heavier than a cellphone for the next 4 weeks He was placed in a new short arm cast, to be worn for the next 4 weeks He will perform gentle finger ROM exercises at home He will continue to keep his cast clean & dry I explained that he will need to be in a cast until this is healed. He has quit smoking and is currently using Nicorette products. He has applied for unemployment at this time since he has been out of work for several months. 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 He will follow up in 4 weeks with radiographs three views plus a scaphoid view. We may consider ordering a CT scan at next appointment to assess for fracture healing if he no longer has snuffbox tenderness. Scribed for Valerie Owusu MD by Philippe Landeros medical program specialist, on 05/10/24 at 10:35 AM, EST. Orders: Orders XR wrist LT w scaphoid Today M25.532 - Pain in left wrist Scribe Plan - Not visible on output: Scribed for Valerie Owusu MD by Philippe Landeros medical program specialist, on [ ] at [ ], EST. Coding Level of Care Code Global (19770) Diagnoses Closed nondisplaced fracture of scaphoid of left wrist, unspecified portion of scaphoid, initial encounter S62.002A Encounter type: initial encounter Fracture alignment: nondisplaced Fracture type: closed Scaphoid bone location: unspecified portion of scaphoid
== END 2024-05-10 10:55 | disposition home or self-care (01) ==
PROVIDERS: PCP Family Medicine; Visit Provider Orthopaedic Surgery
DX: S62.002A Unspecified fracture of navicular [scaphoid] bone of left wrist, initial encounter for closed fracture (principal)
CPT/HCPCS: 99024

== ENCOUNTER 2024-05-10 10:01 | Outpatient (REF) | payer MEDICAID, SELFPAY ==
--- NOTE | ~2024-05-10 | XR_ITS ---
EXAMINATION: XR WRIST, LEFT CLINICAL INFORMATION: Pain COMPARISON: 04/05/2024 wrist radiograph TECHNIQUE: Four views of the left wrist. FINDINGS: Surgical screw fixating the scaphoid with bridging bony callus formation and the fracture margins no longer definitively discernible. No evidence of hardware fracture or complication. Disuse osteopenia. Joint spaces are maintained. Soft tissues are unremarkable. XR/XR wrist LT w scaphoid IMPRESSION: 1. Surgical screw fixating the scaphoid with bridging bony callus formation and the fracture margins no longer definitively discernible. No evidence of hardware fracture or complication. 2. Disuse osteopenia. Electronically signed by: Sharon Novoa MD 06/02/2024 04:53 PM EDT
== END 2024-05-10 10:02 | disposition home or self-care (01) ==
LOC: HO.HOSX 10:01
PROVIDERS: Visit Provider Orthopaedic Surgery
DX: S62.002D Unspecified fracture of navicular [scaphoid] bone of left wrist, subsequent encounter for fracture with routine healing (principal)
CPT/HCPCS: 73110; 99212

== ENCOUNTER 2024-06-02 10:56 | Outpatient (AMB) | payer MEDICAID, SELFPAY ==
--- NOTE | 2024-06-02 11:00 | A.OFFVIS_ITS ---
Vital Signs 06/02/24 11:04 06/02/24 11:05 Height 5 ft 7 in Weight 260 lb BMI 40.7 Handedness Right Intake Visit Reasons: PO- cast change LT Scaphoid ORIF 02/29/24 AR Intake Note: Jamal 28 year old right hand dominant male who presents today for his post operative visit s/p left Scaphoid ORIF 02/29/24 w/ Dr Owusu. Patient reports he would like to change his cast today due to it being dirty and smelling bad. Allergies No Known Allergies Allergy (Verified 06/02/24 11:05) HPI HPI PO- cast change LT Scaphoid ORIF 02/29/24 AR: Details: Patient is a 28-year-old male who presents for cast change status post ORIF of left scaphoid, DOS 02/29/2024. Patient reports that his cast has gotten rather sweaty and dirty over the last few weeks, and he states that he was following instructions then, in the get it changed at this happened. The patient also inquires if we could potentially new x-rays today to determine if he could be out of his cast permanently. No numbness or tingling in the left upper extremity. No other acute complaints or concerns at this time. [facility] Medical History Hypoglycemia COVID Surgical History Hx of eye surgery Hx of hernia repair Family History Mother Mental health disorder Father Alcoholism Sister No problems noted. Sister Mental health disorder Brother No problems noted. Brother No problems noted. Daughter No problems noted. Son ADHD Social History Alcohol intake: current Alcohol intake frequency: holidays/special occasions only Patient Tobacco Use Status: Former Tobacco user Tobacco use type: Cigarette Substance Use Type: Marijuana Current occupational status: unemployed Physical Exam Vital Signs: BMI result Body Mass Index 40.7 Extrem Other: Patient is alert, oriented, and in no acute distress. Neuro: Normal sensation of the tips of all digits of the left hand this time Vascular: Cap refill brisk Pain: No tenderness to the anatomical snuffbox of the left hand No tenderness to the radial styloid, ulnar styloid, DRUJ ROM: Patient is able to make a closed fist and extend all digits of the left hand fully without difficulty Range of motion of the left wrist is full, intact, smooth Skin: Well-healed incision site on the dorsal wrist, no erythema, edema, evidence of infection noted General: No ecchymosis, erythema, or evidence of infection. Psych: Appears grossly normal Affect normal Attitude cooperative Assessment & Plan Assessment & Plan (1) Fracture of scaphoid of left wrist: Code(s): S62.002A - Unspecified fracture of navicular [scaphoid] bone of left wrist, initial encounter for closed fracture Category: Medical Qualifiers: Encounter type: initial encounter Fracture alignment: nondisplaced Fracture type: closed Scaphoid bone location: unspecified portion of scaphoid Qualified Code(s): S62.002A - Unspecified fracture of navicular [scaphoid] bone of left wrist, initial encounter for closed fracture Plan 1. Left scaphoid fracture status post ORIF DOS 02/29/2024 Patient appears to be recovering well postoperatively Patient is educated about the typical recovery course At this time, patient is informed that, due to Dr. Owusu being in the 1 seeing him for his postoperative appointments, she should be the 1 to make the decision as to whether or not she is comfortable removing him from a cast. Patient is advised that he should keep his previously scheduled appointment with Dr. Owusu on 06/15/2024 Patient is amenable to this plan Both cast removed, new cast placed Patient is educated about proper cast care and precautions Of note, the patient asked to use the bathroom after the initial cast was removed. The patient was directed to the bathroom, and was directed to return to the exam room for new cast placement. Patient did not return to the exam room upon finishing, and instead left the office without a new cast being placed. The patient had expressed several times during his visit that he did not feel he needed a new cast. MA attempted to call the patient 3 times, with no answer. Patient should follow-up on 06/15/[address] Owusu for regularly scheduled follow-up, sooner with any acute concerns Coding Level of Care Code Est Pt Level 3 (56721) Diagnoses Closed nondisplaced fracture of scaphoid of left wrist, unspecified portion of scaphoid, initial encounter S62.002A Encounter type: initial encounter Fracture alignment: nondisplaced Fracture type: closed Scaphoid bone location: unspecified portion of scaphoid
[2024-06-02 11:04] VITALS: BMI 40.7
== END 2024-06-02 11:25 | disposition home or self-care (01) ==
PROVIDERS: PCP Family Medicine
DX: S62.002D Unspecified fracture of navicular [scaphoid] bone of left wrist, subsequent encounter for fracture with routine healing (principal); V00.8 Accident on other pedestrian conveyance
CPT/HCPCS: 99213

== ENCOUNTER → 2024-06-02 10:56 | Outpatient (BNVA) | payer MEDICAID, SELFPAY | PROVIDERS: PCP Family Medicine | DX: S62.002A Unspecified fracture of navicular [scaphoid] bone of left wrist, initial encounter for closed fracture (principal); V00.841A Fall from standing electric scooter, initial encounter; Y93.I9 Activity, other involving external motion; Y92.9 Unspecified place or not applicable; Y99.9 Unspecified external cause status | CPT/HCPCS: 99212 ==

== ENCOUNTER 2024-06-15 08:31 | Outpatient (REF) | payer MEDICAID, SELFPAY ==
--- NOTE | ~2024-06-15 | XR_ITS ---
EXAMINATION: XR WRIST, LEFT CLINICAL INFORMATION: M25.532 - Pain in left wrist COMPARISON: 05/10/2024, 04/05/2024, and dating back to CT exam left wrist 02/10/2024. TECHNIQUE: PA, lateral, and oblique views of the left wrist. FINDINGS: Normal bony mineralization. No acute fracture or malalignment. Compression screw oriented along the axis of the scaphoid, fixating a proximal obliqued fracture. Minimal periscrew lucency proximally remains stable. The distal one half appears seated. Screw is intact. Fracture line is indistinct and difficult to fully visualize, indicating some degree of healing. Mild sclerosis of the proximal one third of the scaphoid, possibly suggesting AVN. No additional fractures or bony abnormalities. Carpal bones otherwise intact and normally aligned. No soft tissue abnormalities. XR/XR wrist LT w scaphoid IMPRESSION: 1. Fixated scaphoid fracture in anatomic alignment with evidence of early healing. Similar minimal proximal. Screw lucency. The distal one half appears seated. 2. Mild sclerosis of the proximal one third of the scaphoid, possibly suggesting AVN. This represents a change from initial radiographs. Electronically signed by: Ketan Castaneda MD 08/23/2024 10:07 AM LILI JOY
== END 2024-06-15 08:32 | disposition home or self-care (01) ==
LOC: HO.HOSX 08:31
PROVIDERS: PCP Family Medicine; Visit Provider Orthopaedic Surgery
DX: M25.532 Pain in left wrist (principal); S62.002A Unspecified fracture of navicular [scaphoid] bone of left wrist, initial encounter for closed fracture
CPT/HCPCS: 73110; 99212

== ENCOUNTER 2024-06-15 13:51 | Outpatient (AMB) | payer MEDICAID, SELFPAY ==
--- NOTE | 2024-06-15 14:39 | MHC.OFFVIS ---
Vital Signs 06/15/24 14:40 Height 5 ft 7 in Weight 260 lb BMI 40.7 Intake Visit Reasons: OV LT Scaphoid ORIF 02/29/24 by AR Intake Note: Jamal is a 28 yo right hand dominant male who presents today post operatively s/p left scaphoid ORIF done 02/29/[address] Owusu. Patient presents today without a cast. Patient seen by GALILEO Valladares on 06/02/24 for a cast change, at patient's request. Patient left the office before placing him on a new cast, stating he felt he did not need it anymore. Today, patient stated his cast was removed to obtain x-rays. He is in office today wearing a wrist brace. Allergies No Known Allergies Allergy (Verified 06/15/24 14:42) HPI HPI OV LT Scaphoid ORIF 02/29/24 by AR: Details: Jamal is a 28 year old right hand dominant Danish speaking man who returns S/P left scaphoid ORIF, DOS: 02/29/24 He was seen for a cats change with GALILEO Baltazar on 06/02/24. At that appointment he was insistent that he did not need a new cast. When his cast was removed he asked to use the washroom and was told to return to have a new cast placed. He left after using the washroom, without a new cast on, and did not answer when contacted by the MA's. He is seen today wearing a wrist splint. He says he is doing well overall but he continues to have some pain in his wrist. He says he smokes Marijuana ~once or twice daily, he denies any cigarette use and says he no longer vapes. He has not been smoking since his injury, and says he has been working on quitting using [employer] products, which he feels is going well. He is currently caring for his autistic sister. 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 [facility] Medical History Hypoglycemia COVID Surgical History Hx of eye surgery Hx of hernia repair Family History Mother Mental health disorder Father Alcoholism Sister No problems noted. Sister Mental health disorder Brother No problems noted. Brother No problems noted. Daughter No problems noted. Son ADHD Social History (Updated 06/13/24 @ 16:37 by LINA Hassan) Alcohol intake: current Alcohol intake frequency: holidays/special occasions only Patient Tobacco Use Status: Former Tobacco user Tobacco use type: Cigarette Substance Use Type: Marijuana Current occupational status: unemployed Current occupation: rt handed Physical Exam Vital Signs: BMI result Body Mass Index 40.7 Const General: no acute distress and alert Orientation/consciousness: patient oriented x3 Neuro General: patient oriented x3 Extrem Other: Evaluation of Left Upper Extremity: The patient is alert, oriented, and in no acute distress Neuro: Median, Ulnar, Radial nerves motor and sensory intact and sensation is normal to the tips of all digits Vascular: Cap refill brisk ROM: He can make a fist and extend all his digits Some mild snuffbox tenderness today No tenderness over the scaphoid tubercle His surgical incision is well healed with no erythema drainage or evidence of infection Radiographs: 3 views of the left wrist, plus a scaphoid view, were taken and viewed by me today in clinic. They show a left scaphoid fracture with satisfactory fracture alignment and position of headless compression screw. He appears to have good evidence of interval bony healing. Psych Appearance: grossly normal Affect: normal affect Attitude: cooperative Assessment & Plan Assessment & Plan (1) Fracture of scaphoid of left wrist: Code(s): S62.002A - Unspecified fracture of navicular [scaphoid] bone of left wrist, initial encounter for closed fracture Category: Medical Qualifiers: Encounter type: initial encounter Fracture alignment: nondisplaced Fracture type: closed Scaphoid bone location: unspecified portion of scaphoid Qualified Code(s): S62.002A - Unspecified fracture of navicular [scaphoid] bone of left wrist, initial encounter for closed fracture Plan Assessment & Plan: 1. Left scaphoid waist fracture, S/P ORIF DOI: 01/19/24 DOS: 02/29/24 Patient is a smoker who tried to quit but is still smoking. Two weeks ago he also came in for a cast change goes his cast was dirty and he left after the cast was removed without having it replaced. The patient appears to be doing well post-operatively I educated him about the post-operative course, and the risks of not immobilizing this injury if it has not healed. I discussed activity modifications, He is to lift nothing heavier than a cellphone I ordered a NEW CT scan to assess for scaphoid healing He was fitted for a new wrist splint, to be worn like a cast except for showering, until his next appointment Follow-up after CT scan I talked to him about the fact that if he does not yet have sufficient bony healing he really needs to go back into a cast. 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 He was given a note for work to return on light duty, with a 1lb weight limit with his left hand, and he asked to wear his splint at all times. Again, if he does not have sufficient bony healing he will need to go back into a cast. I ordered a CT scan of his wrist to assess for scaphoid healing. He will follow up when completed for a CT scan review, this should be a 30 minute appointment Scribed for Valerie Owusu MD by Philippe Landeros, biomedical repair technician, on 06/15/24 at 3:20 PM, EST. Orders: Orders XR wrist LT w scaphoid Today M25.532 - Pain in left wrist CT wrist LT wo IV con Today S62.002A - Unspecified fracture of navicular [scaphoid] bone of left wrist, initial encounter for closed fracture Scribe Plan - Not visible on output: Scribed for Valerie Owusu MD by Philippe Landeros biomedical repair technician, on [ ] at [ ], EST. Coding Level of Care Code Global (23577) Diagnoses Closed nondisplaced fracture of scaphoid of left wrist, unspecified portion of scaphoid, initial encounter S62.002A Encounter type: initial encounter Fracture alignment: nondisplaced Fracture type: closed Scaphoid bone location: unspecified portion of scaphoid
[2024-06-15 14:40] VITALS: BMI 40.7
== END 2024-06-15 15:59 | disposition home or self-care (01) ==
PROVIDERS: PCP Family Medicine; Visit Provider Orthopaedic Surgery
DX: S62.002A Unspecified fracture of navicular [scaphoid] bone of left wrist, initial encounter for closed fracture (principal)
CPT/HCPCS: 99213

== ENCOUNTER → 2024-06-15 14:15 | Outpatient (BNV) | payer MEDICAID, SELFPAY | PROVIDERS: PCP Family Medicine; Visit Provider Radiology Diagnostic Radiology | DX: S62.002D Unspecified fracture of navicular [scaphoid] bone of left wrist, subsequent encounter for fracture with routine healing (principal) | CPT/HCPCS: 73110 ==

== ENCOUNTER 2024-06-15 15:58 | Outpatient (REF) | payer MEDICAID, SELFPAY ==
--- NOTE | ~2024-06-15 | CT_ITS ---
EXAMINATION: CT LEFT WRIST WITHOUT CONTRAST CLINICAL INFORMATION: Assess for healing scaphoid fracture. COMPARISON: X-rays of left wrist most recent May 2024. CT left wrist January 2024. TECHNIQUE: CT scan left performed with reconstruction imaging performed at the acquisition workstation. This CT examination was performed using dose optimization techniques as appropriate, variously including the following: *Automated exposure control *Adjustment of mA and/or kV according to patient size (this includes techniques or standardized protocols for targeted exams where dose is matched to indication/reason for exam; i.e. extremities or head) *Use of iterative reconstruction technique FINDINGS: Postoperative changes with a screw extending through the scaphoid across the previously noted fracture. There is minimal, if any, lucency remaining along the fracture line. There is mild increased density at the proximal pole. No bone fragmentation. Minimal residual deformity of the distal articular surface of the scaphoid related to the fracture. Remaining bone and joints unremarkable. CT/CT wrist LT wo IV con IMPRESSION: 1. Postoperative changes with screw fixation across the scaphoid fracture. There is minimal, if any, lucency remaining along the fracture line. Findings indicative of complete or near-complete healing. Minimal articular incongruity related to the healed/healing fracture. 2. There is mild increased density of the proximal pole of the scaphoid but no bone fragmentation. This most likely reflects reparative response to the healing fracture. Cannot exclude avascular necrosis without bone fragmentation. Electronically signed by: Nazario Mckinney MD 06/16/2024 08:47 AM EDT
== END 2024-06-15 15:59 | disposition home or self-care (01) ==
LOC: HO.CT 15:58
PROVIDERS: PCP Family Medicine; Visit Provider Orthopaedic Surgery
DX: S62.002A Unspecified fracture of navicular [scaphoid] bone of left wrist, initial encounter for closed fracture (principal)
CPT/HCPCS: 73110; 73200; 99212

== ENCOUNTER 2024-12-26 08:14 | Outpatient (AMB) | payer MEDICAID, SELFPAY ==
--- OUTSIDE RECORDS SUMMARY | 2024-12-26 08:34 | XMS_ITS | Encounter Summary ---
Author Organization [email or web address] [facility] Address [address] [place] [address] Care Team Providers Care Lawyer Criminal Name Role Phone Gwen Claudio MD Primary Care Provider [phone] Encounter Details Date Type Department Care Team (Late st Contact Info) Description 08/18/2023 Abstract [facility] ADULT DENTAL [address] [place] [address] Dickson Mcguireie, DMD [address] [place] [address] Social History Tobacco Use Types Packs/Day Years Used Date Smoking Tobacco: Former Cigarettes Smokeless Tobacco: Never Sex and Gender Information Value Date Recorded Sex Assigned at Male 07/21/2022 10:27 AM EDT Legal Sex Male 10:27 AM EDT Gender Identity Male 07/21/2022 10:27 AM EDT Sexual Orientation Straight 07/21/2022 10 :27 AM EDT documented as of this encounter Plan of Treatment Upcoming Encounters Date Type Department Care Team (Late st Contact Info) Description 01/19/2025 2:00 PM EDT Office Visit [facility] ADULT DENTAL [address] [place] [address] Jacinto-Alcaraz, Tayler, DDS [address] [place] [address] 06/19/2025 3:00 PM EDT Office Visit [facility] ADULT DENTAL [address] [place] [address] Alecia, Cinthia [address] [place] [address] documented as of this encounter Visit Diagnoses Not on filedocumented in this encounter Care Teams Lawyer Criminal Relationship Specialty Start Date End Date Gwen Claudio MD [address] [place] [address] PCP - General Family Medicine 10/03/14 documented as of this encounter
--- OUTSIDE RECORDS SUMMARY | 2024-12-26 08:34 | XMS_ITS | Encounter Summary ---
Author Organization [employer] [facility] Address [address] [place] [address] Care Team Providers Care Prescription Clerk Lenses Name Role Phone Gwen Claudio MD Primary Care Provider [phone] Encounter Details Date Type Department Care Team (Late st Contact Info) Description 12/21/2024 Population Health Risk Score [facility] ([facility]) Department [address] [place] [id number] Provider, Population Health Generic Social History Tobacco Use Types Packs/Day Years Used Date Smoking Tobacco: Every Day Cigarettes Smokeless Tobacco: Never Depression Answer Date Recorded Patient Health Questionnaire-9 Score 8 11/28/2024 Patient Health Questionnaire-9 Score 8 11/28/2024 Last PHQ-9: Questionnaire Data Not on file 0 11/28/2024 Housing Stability Answer Date Recorded What is your housing situation today? I have hood biggs 03/03/[address] you li ve. Do you have problems with any of the following? None of the above 03/03/2024 Food Insecurity Answer Date Recorded Within the past 12 months, y ou worried that your food would run out before you got money to buy more: Sometimes True 2023 Within the past 12 months,th e food you bought just didn't last and you didn't have enough money to get more: Sometimes True 03/03/2024 Transportation Answer Date Recorded In the past 12 months, has l ack of transportation kept you from medical appts, meetings, work or from getting things needed for daily living? No 03/03/2024 Utilities Answer Date Recorded In the past 12 months, has t he electric, gas, oil or water company threatened to shut off services in your home? No 03/03/2024 Depression Answer Date Recorded Patient Health Questionnaire-2 Score 2 11/28/2024 Internet Access Answer Date Recorded Internet Access Q1 Yes 05/23/2024 Internet Access Q2 Not on file 05/23/2024 Sex and Gender Information Value Date Recorded Sex Assigned at Male 07/21/2022 10:27 AM EDT Legal Sex Male 10:27 AM EDT Gender Identity Male 07/21/2022 10:27 AM EDT Sexual Orientation Straight 07/21/2022 10 :27 AM EDT documented as of this encounter Plan of Treatment Upcoming Encounters Date Type Department Care Team (Late st Contact Info) Description 01/19/2025 2:00 PM EDT Office Visit [facility] ADULT DENTAL [address] [place] [address] Jacinto-Alcaraz, Tayler, DDS [address] [place] [address] 06/19/2025 3:00 PM EDT Office Visit [facility] ADULT DENTAL [address] [place] [address] Alecia, Cinthia [address] [place] [address] documented as of this encounter Visit Diagnoses Not on filedocumented in this encounter Additional Health Concerns Assessment Noted Time PHQ-9 Depression Total Score: 8 11/29/19 25 3:01 PM EDT documented as of this encounter Care Teams Prescription Clerk Lenses Relationship Specialty Start Date End Date Gwen Claudio MD [address] [place] [address] PCP - General Family Medicine 10/03/14 documented as of this encounter
--- OUTSIDE RECORDS SUMMARY | 2024-12-26 08:34 | XMS_ITS | Encounter Summary ---
Author Organization [employer] [facility] Address [address] [place] [address] Care Team Providers Care Boom Conveyor Operator Name Role Phone Gwen Claudio MD Primary Care Provider [phone] Encounter Details Date Type Department Care Team (Late st Contact Info) Description 12/17/2023 Orders Only [facility] MEDICINE [address] [place], [place] [id number] Gwen Claudio MD [address] [place] [address] Elevated blood pressure reading in office without diagnosis of hypertension (Primary Dx); Class 1 obesity due to excess calories with serious comorbidity and body mass index (BMI) of 32.0 to 32.9 in adult; Family history of diabetes mellitus (DM); Routine screening for STI (sexually transmitted infection) Social History Tobacco Use Types Packs/Day Years [...] Description 01/19/2025 2:00 PM EDT Office Visit [facility] ADULT DENTAL [address] [place] [address] Tayler Ramirez, DDS [address] [place] [address] 06/19/2025 3:00 PM EDT Office Visit [facility] ADULT DENTAL [address] [place] [address] [place] [address] Scheduled Orders Name Type Priority Associated Diagnoses Orde r Schedule TSH with Reflex to Free T4 Lab Routine Class 1 obesity due to excess calories with serious comorbidity and body mass index (BMI) of 32.0 to 32.9 in adult Expected: 12/17/2023 (Approximate), Expires: 12/16/2024 Hemoglobin A1c Lab Routine Class 1 obesity due to excess calories with serious comorbidity and body mass index (BMI) of 32.0 to 32.9 in adult Family history of diabetes mellitus (DM) Expected: 12/17/2023 (Approximate), Expires: 12/16/2024 Comprehensive Metabolic Panel Lab Routine Elevated blood pressure reading in office without diagnosis of hypertension Expected: 12/17/2023 (Approximate), Expires: 12/16/2024 Syphilis Screen Lab Routine Routine screening for STI (sexually transmitted infection) Expected: 12/17/2023 (Approximate), Expires: 12/16/2024 Hepatitis C Antibody with Reflex to HCV, RNA, Quantitative, Real-Time PCR Lab Routine Routine screening for STI (sexually transmitted infection) Expected: 12/17/2023 (Approximate), Expires: 12/16/2024 Hepatitis B Surface Antibody, Qualitative Lab Routine Routine screening for STI (sexually transmitted infection) Expected: 12/17/2023 (Approximate), Expires: 12/16/2024 Hepatitis B Core Antibody, Total Lab Routine Routine screening for STI (sexually transmitted infection) Expected: 12/17/2023 (Approximate), Expires: 12/16/2024 Chlamydia/N. Gonorrhoeae RNA, TMA, Urogenitial Microbiology Routine Routine screening for STI (sexually transmitted infection) Expected: 12/17/2023 (Approximate), Expires: 12/16/2024 HIV-1/2 Antigen and Antibodies, Fourth Generation, with Reflexes Lab Routine Routine screening for STI (sexually transmitted infection) Expected: 12/17/2023 (Approximate), Expires: 12/16/2024 Hepatitis B surface antigen, EIA Lab Routine Routine screening for STI (sexually transmitted infection) Expected: 12/17/2023 (Approximate), Expires: 12/16/2024 documented as of this encounter Visit Diagnoses Diagnosis Elevated blood pressure reading in office without diagnosis of hypertension- Primary Class 1 obesity due to excess calories with serious comorbidity and body mass index (BMI) of 32.0 to 32.9 in adult Family history of diabetes mellitus (DM) Family history of diabetes mellitus Routine screening for STI (sexually transmitted infection) Screening examination for venereal disease documented in this encounter Care Teams Boom Conveyor Operator Relationship Specialty Start Date End Date Gwen Claudio MD [address] [place] [phone] PCP - General Family Medicine 10/03/14 documented as of this encounter
--- OUTSIDE RECORDS SUMMARY | 2024-12-26 08:34 | XMS_ITS | Encounter Summary ---
Author Organization [employer] [facility] Address [address] [address] Care Team Providers Care Supervisor Type Photography Name Role Phone Gwen Claudio MD Primary Care Provider [phone] Encounter Details Date Type Department Care Team (Late st Contact Info) Description 07/31/2023 Abstract [facility] ADULT DENTAL [address] [place] [address] Jaspreet Sanders DDS [address] [place] [address] Social History Tobacco Use Types Packs/Day Years [...] Description 01/19/2025 2:00 PM EDT Office Visit [facility] ADULT DENTAL [address] [place] [address] Tayler Ramirez, DDS [address] [place] [address] 06/19/2025 3:00 PM EDT Office Visit [facility] ADULT DENTAL [address] [place] [address] Cinthia Alston [address] [place] [address] documented as of this encounter Visit Diagnoses Not on filedocumented in this encounter Care Teams Supervisor Type Photography Relationship Specialty Start Date End Date Gwen Claudio MD [address] [place] [address] PCP - General Family Medicine 10/03/14 documented as of this encounter
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
--- OUTSIDE RECORDS SUMMARY | 2024-12-26 08:34 | XMS_ITS | Encounter Summary ---
Author Organization [facility] Address [address] [place] [address] Care Team Providers Care Public Welfare Director Name Role Phone Gwen Claudio MD Primary Care Provider [phone] Encounter Details Date Type Department Care Team (Latest Contact Info) Description 01/27/2022 Abstract [facility] CONVERSION[facility] Dental, Provider, DDS Social History Tobacco Use Types Packs/Day Years Used Date Smoking Tobacco: Never Assessed Sex and Gender Information Value Date Recorded Sex Assigned at Male 07/21/2022 10:27 AM EDT Legal Sex Male 10:27 AM EDT Gender Identity Male 07/21/2022 10:27 AM EDT Sexual Orientation Straight 07/21/2022 10 :27 AM EDT documented as of this encounter Plan of Treatment Upcoming Encounters Date Type Department Care Team (Late st Contact Info) Description 01/19/2025 2:00 PM EDT Office Visit [facility] [address] [place] [address] Jacinto-Alcaraz, Tayler, DDS [address] [place] [address] 06/19/2025 3:00 PM EDT Office Visit [facility] [address] [place] [address] Alecia, Cinthia [address] [place] [address] documented as of this encounter Visit Diagnoses Not on filedocumented in this encounter Care Teams Public Welfare Director Relationship Specialty Start Date End Date Gwen Claudio MD [address] [place] [address] PCP - General Family Medicine 10/03/14 documented as of this encounter
--- OUTSIDE RECORDS SUMMARY | 2024-12-26 08:34 | XMS_ITS | Encounter Summary ---
Author Organization [facility] Address [address] [place] [address] Care Team Providers Care Annealing Furnace Operator Name Role Phone Gwen Claudio MD Primary Care Provider [phone] Reason for Referral * Imaging (STAT) - Closed Specialty Diagnoses / Procedures Referred By Kashmir up Referred To Contact Radiology Diagnoses Closed nondisplaced fracture of scaphoid of left wrist, unspecified portion of scaphoid, initial encounter Procedures CT Wrist w/o Contrast Left Gwen Claudio MD [address] [place] [address] Phone: tel: fax: [address] Phone: tel: fax: Referral ID Status Reason Start Date Expiration Date Visits Re quested Visits Authorized [id number] Closed 02/04/2024 02/03/2025 1 1 * Imaging (STAT) - Canceled Specialty Diagnoses / Procedures Referred By Kashmir up Referred To Contact Radiology Diagnoses Closed nondisplaced fracture of scaphoid of left wrist, unspecified portion of scaphoid, initial encounter Procedures CT Hand w/o Contrast Left Gwen Claudio MD [address] [place] [address] Phone: tel: fax: [address] Phone: tel: fax: Referral ID Status Reason Start Date Expiration Date V isits Requested Visits Authorized [id number] Canceled 02/04/2024 02/03/2025 1 1 Encounter Details Date Type Department Care Team (Late st Contact Info) Description 02/04/2024 Orders Only [facility] [address] [place] [address] Gwen Claudio MD [address] [place] [address] Closed nondisplaced fracture of scaphoid of left wrist, unspecified portion of scaphoid, initial encounter (Primary Dx) Social History Tobacco Use Types Packs/Day Years [...] Description 01/19/2025 2:00 PM EDT Office Visit [facility] [address] [place] [address] Jacinto-Alcaraz, Tayler, DDS [address] [place] [address] 06/19/2025 3:00 PM EDT Office Visit [facility] [address] [place] [address] Alecia, Cinthia [address] [place] [address] Scheduled Orders Name Type Priority Associated Diagnoses Orde r Schedule CT Hand w/o Contrast Left Imaging STAT Closed nondisplaced fracture of scaphoid of left wrist, unspecified portion of scaphoid, initial encounter Expected: 02/04/2024, Expires: 02/03/2025 CT Wrist w/o Contrast Left Imaging STAT Closed nondisplaced fracture of scaphoid of left wrist, unspecified portion of scaphoid, initial encounter Expected: 02/04/2024, Expires: 02/03/2025 documented as of this encounter Visit Diagnoses Diagnosis Closed nondisplaced fracture of scaphoid of left wrist, unspecified portion of scaphoid, initial encounter- Primary documented in this encounter Care Teams Annealing Furnace Operator Relationship Specialty Start Date End Date Gwen Claudio MD [address] [place] [address] PCP - General Family Medicine 10/03/14 documented as of this encounter
--- NOTE | 2024-12-26 13:14 | A.OFFVIS_ITS ---
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 *CONTINUOUS PROCESS ROTARY DRUM TANNER* Naval Inspector Required: Yes Naval Inspector Services: Naval Inspector Present Information Interpreted: clinical only Allergies No Known Allergies Allergy (Verified 12/26/24 13:15) Medication List - Last Reconciled 12/26/24 by Austin Kapoor MD acetaminophen 500 mg PO Q6H PRN albuterol sulfate 90 mcg/actuation (Ventolin HFA) 2 puffs inhalation Q4H PRN bupropion HCl XL 150 mg PO DAILY clonidine HCl 0.1 mg PO BEDTIME PRN ketoconazole 2% appl topical DAILY multivitamin 1 tab PO QAM nicotine (polacrilex) 4 mg PO Q2-3H PRN HPI 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 *CONTINUOUS PROCESS ROTARY DRUM TANNER*: Details: Start time: 1.17pm, End time: 2.17pm I spent 50 minutes speaking with the patient on the phone plus an additional 10 minutes reviewing and updating records for a total of 60 minutes HPI Comments Details: Previous weight loss efforts: Wegovy: lost 40lbs in 4 months, no side effects Wakes up: 12pm, Sleeps: 3am Breakfast: skips Lunch: 1-2pm (pork, fish and vegetables) Dinner: 7pm-9pm (salad) Snacks: 4-5pm (fruits, sandwich) Exercise: has home treadmill Beverages: Coffee/tea: none, soda: diet Coca Cola (one bottle daily), juice: none, ETOH: none PFSH Medical History (Updated 12/26/24 @ 13:28 by Austin Kapoor MD) Asthma Anxiety Depression BMI 35.0-35.9,adult Hypoglycemia COVID Surgical History (Updated 12/12/24 @ 14:39 by OMAR Pena) Hx of hand surgery Hx of eye surgery Hx of hernia repair Family History (Updated 12/12/24 @ 14:42 by OMAR Pena) Mother Mental health disorder Father Alcoholism Sister Cancer Sister Mental health disorder Brother No problems noted. Brother No problems noted. Daughter No problems noted. Son ADHD Maternal Grandmother Cancer Social History (Updated 12/12/24 @ 14:43 by OMAR Pena) Alcohol intake: current Alcohol intake frequency: holidays/special occasions only Patient Tobacco Use Status: Current everyday Tobacco user Tobacco use type: Cigarette Cigarettes Per Day: 5 Substance Use Type: Marijuana Current occupational status: unemployed Current occupation: rt handed Telehealth Telehealth Telehealth Platform: Telephone Location of provider rendering services: practice address Location of patient: address on file Patient Identification confirmed using: Name, : Yes Telehealth method: voice only Patient verbally consented to treatment: Yes Patient verbally consented to billing insurance company: Yes Patient informed of any privacy concerns related to visit: Yes Minutes spent on Phone/Video with Pt.: 60 Assessment & Plan Assessment & Plan (1) Obesity (BMI 30-39.9): Code(s): E66.9 - Obesity, unspecified Category: Medical Plan: 1. Plan for lap sleeve gastrectomy. If diaphragmatic or ventral hernias are present at time of surgery, these will be repaired laparoscopically as well. I emphasized the importance of close follow-up, adherence to instructions and good communication. The surgery does not replace the need to change your lifestlyle which is the cause of the obesity problem. The surgery provides the motivation to try again to change your lifestyle, it reduces the appetite and make the transition to a better lifestyle easier and doubles the amount of weight you would lose compared to doing the lifestyle change without the surgery. You will need to be on a liquid diet with protein shakes for 2 weeks before surgery to maximize weight loss and boost your nutritional status to recover better from surgery and also for the first two weeks after surgery to let the stomach heal before we introduce other foods. After the first 2 weeks we will introduce protein bars and soft foods like scrambled eggs, cottage cheese and yogurt and after the 6th week will introduce meat, fish and cooked vegetables in small amounts. Over time you should be able to eat everything in small amounts. Side effects like nausea, vomiting, heartburn or abdominal pain are not common in the practice unless you are not following in the practice. This operation requires lifetime commitment to following in our practice and communication with me. You will much less weight and experience side effects if you don?t communicate or not following in the practice. Complications are rare and in our practice is about 1/10 of the national average. However, you can develop bleeding that may require transfusion (hasn?t happened for year in the practice), you may from complications (we did not have any deaths in the practice) and infections. Infections are usually a result of breakdown in communication or not understanding or following directions correctly. They are difficult to treat, they can happen during the first 6 weeks, they may require to be in the hospital for weeks or even months, not being able to eat by mouth and you may have drains and surgeries to try and correct the issue. Other risks and complications include possible conversion to an open procedure, leaks, small bowel obst ruction, blood clots, cardiac, or pulmonary complications, as prison complications such as ulcers, insufficient weight loss and vitamin deficiencies. 2. Nutritional counseling. Start with one premade Premier shake (buy at [employer])) shake (mix 2oz of Premier shake with 6oz low fat unsweetened almond milk each) at 12pm-2pm, two protein bars (Fit Crunch 16gr protein bars, buy at [employer]) at 2pm-4pm and 5pm-7pm, dinner at 8pm (8 forks of protein and 8 forks of salad/vegetables), one more Premier shake (mix 2oz of Premier shake with 6oz almond milk) at 10pm-12am and one more [employer] Crunch protein bar at 1am- 3am. So you do 2 protein shakes, 3 protein bars and one meal per day. Meal to include lean meat (beef, fish, pork, turkey, chicken), or kyrgyz yogurt, or egg whites, or beans with a salad with olive oil and fruits (berries, pears, apples, kiwi). Avoid salt, breads, potatoes, rice, pasta, desserts. 3. Each shake would be drunk slowly, like coffee in a period of 2 hours. 4. Cut each bar in 4 pieces and eat each piece in 30min to make each bar last 2 hours. 5. I emphasized the importance of measuring accurately the food portion and measure it when serving the food in plate 6. The meal portions include 8 full-size forks of meat and 8 full-size forks of salad. You always eat the meat portion but you can replace up to 4 forks for salad/vegetables with rice, potatoes or pasta, or a fruit if you like. The less you do it the better weight loss will be. 7. One full-size fork is what it can be scooped on the fork without falling aside and not what can be bit with the fork. Use regular forks like those you find in a typical restaurant. 8. Please buy the body composition scale we discussed and send me weight measurements as soon as possible and then once a week. Always include your diet and exercise plan. 9. Start treadmill with a speed of 4mph. Goal is to burn 2000 calories per week on exercise, which means either 300 calories daily. 10. The best choice would be to purchase a stationary bike, elliptical or treadmill at home that can track calories. Let me know if you do so I can give you an exercise plan. 11. Goal is to lose at least 1.5-2lbs per week 12. Goal to lose 10% of your weight before surgery, which is about 22lbs. Ultimate weight goal: 204lbs before surgery 13. Please follow the diet plan exactly without any change. If you don't like something about the plan or you feel hungry you need to communicate with me so I can help you revise the plan. You should not change the plan yourself 14. To be scheduled for EGD to assess the stomach's anatomy. The possibility of biopsies was discussed. Patient needs to avoid use of NSAIDs and aspirin for 1 week prior to EGD. You must be on liquids only the day before your endoscopy. Risks of perforation and bleeding was discussed with the patient. This will be an outpatient procedure with IV sedation. 15. As of tomorrow, please send me a picture of your meal plate after you measure it, but before you consume it. Orders: Orders Hemoglobin A1c Today E66.9 - Obesity, unspecified, J45.909 - Unspecified asthma, uncomplicated, Z68.35 - Body mass index [BMI] 35.0-35.9, adult H Pylori Breath Test Today E66.9 - Obesity, unspecified, J45.909 - Unspecified asthma, uncomplicated, Z68.35 - Body mass index [BMI] 35.0-35.9, adult Comprehensive Met. Panel Today E66.9 - Obesity, unspecified, J45.909 - Unspecified asthma, uncomplicated, Z68.35 - Body mass index [BMI] 35.0-35.9, adult Zinc Today E66.9 - Obesity, unspecified, J45.909 - Unspecified asthma, uncomplicated, Z68.35 - Body mass index [BMI] 35.0-35.9, adult Ferritin Today E66.9 - Obesity, unspecified, J45.909 - Unspecified asthma, uncomplicated, Z68.35 - Body mass index [BMI] 35.0-35.9, adult Vitamin D 25-OH Total Today E66.9 - Obesity, unspecified, J45.909 - Unspecified asthma, uncomplicated, Z68.35 - Body mass index [BMI] 35.0-35.9, adult US abdomen comp w elastography Today E66.9 - Obesity, unspecified, J45.909 - Unspecified asthma, uncomplicated, Z68.35 - Body mass index [BMI] 35.0-35.9, adult ECG 12 lead EKG Today E66.9 - Obesity, unspecified, J45.909 - Unspecified asthma, uncomplicated, Z68.35 - Body mass index [BMI] 35.0-35.9, adult FL upper GI w air Today E66.9 - Obesity, unspecified, J45.909 - Unspecified asthma, uncomplicated, Z68.35 - Body mass index [BMI] 35.0-35.9, adult Insulin Today E66.9 - Obesity, unspecified, J45.909 - Unspecified asthma, uncomplicated, Z68.35 - Body mass index [BMI] 35.0-35.9, adult Complete Blood Count Auto Diff Today E66.9 - Obesity, unspecified, J45.909 - Unspecified asthma, uncomplicated, Z68.35 - Body mass index [BMI] 35.0-35.9, adult Lipid Panel Today E66.9 - Obesity, unspecified, J45.909 - Unspecified asthma, uncomplicated, Z68.35 - Body mass index [BMI] 35.0-35.9, adult IRON PROFILE Today E66.9 - Obesity, unspecified, J45.909 - Unspecified asthma, uncomplicated, Z68.35 - Body mass index [BMI] 35.0-35.9, adult Vitamin B12 and Folate Today E66.9 - Obesity, unspecified, J45.909 - Unspecified asthma, uncomplicated, Z68.35 - Body mass index [BMI] 35.0-35.9, adult C Reactive Protein Today E66.9 - Obesity, unspecified, J45.909 - Unspecified asthma, uncomplicated, Z68.35 - Body mass index [BMI] 35.0-35.9, adult Vitamin B1 Today E66.9 - Obesity, unspecified, J45.909 - Unspecified asthma, uncomplicated, Z68.35 - Body mass index [BMI] 35.0-35.9, adult Vitamin A Today E66.9 - Obesity, unspecified, J45.909 - Unspecified asthma, uncomplicated, Z68.35 - Body mass index [BMI] 35.0-35.9, adult TSH reflex Free T4 Today E66.9 - Obesity, unspecified, J45.909 - Unspecified asthma, uncomplicated, Z68.35 - Body mass index [BMI] 35.0-35.9, adult XR chest 2V Today E66.9 - Obesity, unspecified, J45.909 - Unspecified asthma, uncomplicated, Z68.35 - Body mass index [BMI] 35.0-35.9, adult Referrals Behavioral Health Referral E66.9 - Obesity, unspecified, J45.909 - Unspecified asthma, uncomplicated, Z68.35 - Body mass index [BMI] 35.0-35.9, adult Nutrition/Dietitian Referral E66.9 - Obesity, unspecified, J45.909 - Unspecified asthma, uncomplicated, Z68.35 - Body mass index [BMI] 35.0-35.9, donny lt
[2024-12-26 13:36] VITALS: BMI 35.5
== END 2024-12-26 14:18 | disposition home or self-care (01) ==
LOC: HO.HBS 08:14
PROVIDERS: PCP Family Medicine; Visit Provider Surgery
DX: E66.812 Obesity, class 2 (principal); Z68.35 Body mass index [BMI] 35.0-35.9, adult
CPT/HCPCS: 99205

== ENCOUNTER → 2024-12-26 08:14 | Outpatient (BNVA) | payer MEDICAID, SELFPAY | PROVIDERS: PCP Family Medicine; Visit Provider Surgery ==

== ENCOUNTER 2025-02-02 13:43 | Emergency (ER) | payer SELFPAY ==
--- NOTE | ~2025-02-02 | US_ITS ---
EXAMINATION: US SCROTUM WITH DOPPLER COMPLETE HISTORY: TESTICULAR PAIN. COMPARISON: There are no prior studies for comparison. FINDINGS: Real-time grayscale ultrasound imaging of the scrotum was performed. Color and spectral Doppler analysis was also performed. RIGHT TESTICLE: The right testis measures 4.9 x 2.3 x 3.0 cm and demonstrates extensive microlithiasis. No masses are seen. The right testis demonstrates normal arterial and venous color Doppler and spectral waveforms. RIGHT EPIDIDYMIS: Normal in size, shape, and vascularity. LEFT TESTICLE: The left testis measures 4.6 x 2.2 x 3.1 cm and demonstrates extensive microlithiasis. No masses are seen. The left testis demonstrates normal arterial and venous color Doppler and spectral waveforms. LEFT EPIDIDYMIS: Normal in size, shape, and vascularity. VARICOCELE: None. HYDROCELE: No significant hydrocele is seen. OTHER COMMENTS: None. US/US scrotum doppler IMPRESSION: Bilateral testicular microlithiasis. Careful clinical history for the elucidation of risk factors for testicular carcinoma is recommended. Otherwise unremarkable scrotal ultrasound. Electronically signed by: Arron Belcher MD 02/02/2025 03:39 PM EDT
--- NOTE | ~2025-02-02 | US_ITS ---
EXAMINATION: US SCROTUM WITH DOPPLER COMPLETE HISTORY: TESTICULAR PAIN. COMPARISON: There are no prior studies for comparison. FINDINGS: Real-time grayscale ultrasound imaging of the scrotum was performed. Color and spectral Doppler analysis was also performed. RIGHT TESTICLE: The right testis measures 4.9 x 2.3 x 3.0 cm and demonstrates extensive microlithiasis. No masses are seen. The right testis demonstrates normal arterial and venous color Doppler and spectral waveforms. RIGHT EPIDIDYMIS: Normal in size, shape, and vascularity. LEFT TESTICLE: The left testis measures 4.6 x 2.2 x 3.1 cm and demonstrates extensive microlithiasis. No masses are seen. The left testis demonstrates normal arterial and venous color Doppler and spectral waveforms. LEFT EPIDIDYMIS: Normal in size, shape, and vascularity. VARICOCELE: None. HYDROCELE: No significant hydrocele is seen. OTHER COMMENTS: None. US/US scrotum IMPRESSION: Bilateral testicular microlithiasis. Careful clinical history for the elucidation of risk factors for testicular carcinoma is recommended. Otherwise unremarkable scrotal ultrasound. Electronically signed by: Arron Belcher MD 02/02/2025 03:39 PM EDT
[2025-02-02 13:50] VITALS: BP 146/84; PULSE 108; RESP 18; TEMP 36.8; O2SAT 100; BMI 35.9
--- NOTE | 2025-02-02 13:53 | ED.GENADULT ---
HPI - General Adult General Chief complaint: Back Pain/Injury Stated complaint: back pain Time Seen by Provider: 02/02/25 17:33 Source: patient, RN notes reviewed and old records reviewed Mode of arrival: ambulatory History of Present Illness ED Provider: Nakia Hastings PA-C HPI narrative: 29-year-old male with a past medical history of asthma, anxiety, depression, presenting to the ED complaining of bilateral testicular pain radiating to low back x 2 weeks. Reports repetitive/multiple ejaculations over the past 2 weeks after reconciliation with which he attributes symptoms to. Denies abdominal pain, dysuria/hematuria, penile discharge/lesions, testicular swelling, flank pain, nausea/vomiting Related Data Home Medications ?Medication ?Instructions ?Recorded ?Confirmed acetaminophen 500 mg tablet 500 mg PO Q6H PRN mild pain 12/12/24 12/26/24 albuterol sulfate 90 mcg/actuation 2 puff inhalation Q4H PRN wheezing 12/12/24 12/26/24 aerosol inhaler (Ventolin HFA) bupropion HCl 150 mg 24 hr tablet, 150 mg PO DAILY 12/12/24 12/26/24 extended release clonidine HCl 0.1 mg tablet 0.1 mg PO BEDTIME PRN insomnia 12/12/24 12/26/24 ketoconazole 2 % topical cream appl topical DAILY 12/12/24 12/26/24 multivitamin 1 tab PO QAM 12/12/24 12/26/24 nicotine (polacrilex) 4 mg gum 4 mg PO Q2-3H PRN 12/12/24 12/26/24 Allergies Allergy/AdvReac Type Severity Reaction Status Date / Time No Known Allergies Allergy Verified 02/02/25 13:51 Review of Systems Review of Systems: Yes all other systems are reviewed and are negative Constitutional: Constitutional: Reports as per [facility] Past Medical History Attestation statement: The following information was validated with the patient. Source: old records reviewed Medical History Asthma Anxiety Depression BMI 35.0-35.9,adult Hypoglycemia COVID Surgical History Hx of hand surgery Hx of eye surgery Hx of hernia repair Family History Family History Mother Mental health disorder Father Alcoholism Sister Cancer Sister Mental health disorder Brother No problems noted. Brother No problems noted. Daughter No problems noted. Son ADHD Maternal Grandmother Cancer Social History Social History Alcohol intake: current Alcohol intake frequency: holidays/special occasions only Patient Tobacco Use Status: Current everyday Tobacco user Tobacco use type: Cigarette Cigarettes Per Day: 5 Substance Use Type: Marijuana Current occupational status: unemployed Current occupation: rt handed Physical Exam ED Vital Signs: Vital Signs - 24 hr 02/02/25 13:50 Temperature 98.2 F Pulse Rate 108 H Respiratory Rate 18 Blood Pressure 146/84 H Pulse Oximetry 100 Oxygen Delivery Method Room Air BMI result Body Mass Index 35.9 Const General: cooperative, healthy appearing and no acute distress Orientation/consciousness: patient oriented x3 Limitations: no limitations HENMT Head: Yes normal to inspection and Yes atraumatic Ears: hearing grossly normal bilaterally General nose exam: Normal external nose present Face and sinus: Yes normal facial exam Eyes General: appearance normal, both eyes and all related structures EOM: EOMs intact bilaterally Neck Neck: Yes normal visual inspection and Yes no meningeal signs Resp Effort & Inspection: normal respiratory effort and no respiratory distress Auscultation: clear to auscultation bilaterally Cardio Rate: regular rate Heart sounds: S1 normal heart sound present and S2 normal heart sound present GI Inspection: Yes normal to inspection Palpation (GI): Soft to palpation, nontender, no guarding and not rigid General: Yes no CVA tenderness Penis: normal penis and uncircumcised Meatus: meatus normal Scrotum: no ecchymosis, not erythematous, no inguinal hernias and no ulcerations Testes: no blue dot sign, not enlarged, no epidiymal tenderness, no masses, no testicular swelling and testicular tenderness bilateral Back/Spine/Pelvis Back: no CVA tenderness Skin Rashes: no rashes Wounds: no wounds Neuro General: patient oriented x3, tone normal and no meningeal signs Cranial nerves: Yes CN's II-XII intact bilaterally Gait exam (Neuro): Normal gait present Extrem General: Yes normal to inspection Course Course Course Narrative: RME, this is a rapid medical exam performed by Jonathon Johnston please refer to primary provider for complete H&P- a 29-year-old male presents for evaluation abdominal pain, pain radiating to his back and testicular pain. Plan for labs, ultrasound of the scrotum with Doppler and urinalysis as well as STI testing -[id number]--labs reassuring. UA negative. Gonorrhea and chlamydia testing negative US scrotum doppler IMPRESSION: Bilateral testicular microlithiasis. Careful clinical history for the elucidation of risk factors for testicular carcinoma is recommended. Otherwise unremarkable scrotal ultrasound. > patient states he does not know his father's history however does report cancer runs in the female side of his family. No personal historyof CA. Discussed results of ultrasound and needed follow-up with urology for further management/outpatient workup Results discussed with patient including worrisome signs and symptoms and strict return precautions, and when to return to the emergency department. They verbalized understanding and feel safe for discharge at this time. Medications Administered Generic Name Dose Route Start Last Admin Trade Name Freq PRN Reason Stop Dose Admin Sodium Chloride 1,000 mls @ 999 mls/hr 02/02/25 18:00 02/02/25 17:57 Ns IV 02/02/25 19:00 999 mls/hr .Q1H1M JIM Administration Discontinued Medications Generic Name Dose Route Start Last Admin Trade Name Freq PRN Reason Stop Dose Admin Ketorolac Tromethamine 15 mg 02/02/25 17:52 02/02/25 17:57 Ketorolac Tromethamine 15 Mg/Ml Vial IVPUSH 02/02/25 17:53 15 mg ONCE ONE Administration Medical Decision Making Medical Decision Making MDM Narrative: 29-year-old male with a past medical history of asthma, anxiety, depression, presenting to the ED complaining of bilateral testicular pain radiating to low back x 2 weeks. On exam mildly tachycardic, NAD, nontoxic appearing, physical exam as noted above. Abdomen is soft and nontender, no CVAT. Bilateral testicular tenderness appreciated without swelling, erythema, masses, lesions or discharge. Concern for STI vs epididymitis/orchitis vs UTI. Lower suspicion for pyelo or renal stone or testicular torsion with duration of symptoms & w/o CVAT. Unlikely appendicitis/diverticulitis. Low suspicion for prostatitis Plan: Labs, UA, STI testing, ultrasound, IVF/pain control per patient request Please refer to course for remaining clinical decision making, interpretation of labs/imaging results, and discussions with consultants and/or family members. Differential Diagnosis Differential Diagnoses: The differential diagnosis associated with the presentation includes As above Admission/Observation Consideration of admission/observation: Escalation of care including admission/observation considered Lab Data MDM Lab Attestation statement: I reviewed the patient's lab results. 02/02/25 14:07 02/02/25 14:07 Labs: Lab Results 02/02/25 Range/Units 14:07 WBC 7.2 (4.8-10.8) X10*3/uL RBC 5.68 (4.60-5.80) X10*6/uL Hgb 17.3 (14.0-18.0) g/dl Hct 50.1 (42.0-52.0) % MCV 88.2 (80.0-98.0) fL MCH 30.5 (27.0-33.0) pg MCHC 34.5 (31.0-36.0) g/dl RDW 11.5 (11.0-16.0) % Plt Count 173 (160-400) X10*3/uL MPV 12.1 (9.4-12.4) fL Immature Gran % (Auto) 0.3 (0.0-0.4) % Neut % (Auto) 74.3 H (45-73) % Lymph % (Auto) 18.9 L (20-40) % [place] % (Auto) 4.1 (2-11) % Eos % (Auto) 1.1 (0-4) % Baso % (Auto) 1.3 (0-2) % Lymph # (Auto) 1.4 (1.2-4.9) X10*3/uL [place] # (Auto) 0.3 (0.1-1.2) X10*3/uL Eos # (Auto) 0.1 (0.0-0.4) X10*3/uL Baso # (Auto) 0.1 (0.0-0.2) X10*3/uL Abs Immat Gran (auto) 0.02 (0.00-0.03) X10*3/uL Absolute Neuts (auto) 5.3 (2.0-8.3) x10*3/uL Absolute Nucleated RBC 0.000 (0.0-0.012) X10*3/uL Nucleated RBC % (auto) 0.0 (0.0-0.2) /100WBC Sodium 141 (135-145) mmol/L Potassium 3.7 (3.3-5.1) mmol/L Chloride 107 (96-108) mmol/L Carbon Dioxide 25 (22-29) mmol/L Anion Gap 13 (12-20) BUN 12 (9-16) mg/dL Creatinine 0.92 (0.5-1.4) mg/dL Estim Creat Clear Calc 136.2 Estimated GFR > 60 Random Glucose 155 H (60-115) mg/dL Calcium 9.1 (8.4-10.2) mg/dL Total Bilirubin 0.4 (0.0-1.0) mg/dL AST 27 (5-37) U/L ALT 28 (0-40) U/L Alkaline Phosphatase 108 (39-117) U/L Total Protein 7.4 (6.5-8.0) g/dL Albumin 4.6 (3.5-5.0) g/dL Lipase 22 (8-78) U/L Urine Color Yellow Urine Appearance Clear Urine pH 5.5 (5.0-9.0) Ur Specific [place] 1.025 (1.005-1.025) Urine Protein Negative (Neg-Trace) mg/dL Urine Glucose (UA) Negative (Negative) mg/dL Urine Ketones Trace (Negative) mg/dL Urine Blood Negative (Negative) Urine Nitrite Negative (Negative) Ur Leukocyte Esterase Negative (Negative) Urine RBC 0-2 (0-2) /HPF Urine WBC 0-5 (0-5) /HPF Ur Squamous Epith Cells 0-2 (0-2) /HPF Urine Bacteria None Seen (None Seen) Hyaline Casts 0-2 (0-2) /LPF Chlam trachomat DNA PCR NOT DETECTED (Not Detect.) N.gonorrhoeae DNA (PCR) NOT DETECTED (Not Detect.) Independent Interpretation I performed an independent interpretation of an: Ultrasound Radiology Impression Discussion of test interpretation with radiology: I have reviewed the radiologist's reading. External Record Review External record reviewed: Inpatient record, Office record, Outpatient record, Prior outpatient labs, Prior outpatient radiology, Primary care record and Outside ED record Tests considered The following testing was considered but not selected: As above - CT considered however not needed at this time without abdominal or CVAT Prescription Management I considered prescription management with: Pain Medication Chronic Conditions Patient?s care impacted by: Other Social Determinants Patient?s care significantly limited by Social Determinants of Health including: Other Social Determinant of Health Discharge Plan Discharge Clinical Impression: Testicular microlithiasis, Pain in both testicles Patient Disposition: Home, Self-Care Instructions: Testicle Pain (ED) Additional Instructions: Your blood work is reassuring. You tested negative for gonorrhea and chlamydia Urologist non shows some calcium deposits in your testicles. This could be an indication of cancer risk, You need to follow up with the specialist, please call to make an appointment If her pain persists or worsens/becomes unbearable, you constant or worsening back pain, develop abdominal pain, nausea, vomiting, penile discharge or lesions return to the ED US scrotum doppler IMPRESSION: Bilateral testicular microlithiasis. Careful clinical history for the elucidation of risk factors for testicular carcinoma is recommended. Otherwise unremarkable scrotal ultrasound. Prescriptions: No Action nicotine (polacrilex) 4 mg gum 4 mg PO Q2-3H PRN bupropion HCl 150 mg tablet extended release 24 hr 150 mg PO DAILY ketoconazole 2 % cream topical DAILY albuterol sulfate [Ventolin HFA] 90 mcg/actuation HFA aerosol inhaler 2 puff inhalation Q4H PRN (Reason: wheezing) clonidine HCl 0.1 mg tablet 0.1 mg PO BEDTIME PRN (Reason: insomnia) multivitamin Tablet 1 tab PO QAM acetaminophen 500 mg tablet 500 mg PO Q6H PRN (Reason: mild pain) Referrals: [facility] [place] [facility] [Provider Group] - 5 days Gwen Claudio MD [Primary Care Provider] - 1 week Print Language: Korean
[2025-02-02 14:16] LABS: MANUAL DIFF FLAG NO
[2025-02-02 14:18] LABS: Basophils Absolute Auto 0.1 X10*3/uL (0.0-0.2); Basophils Percent Auto 1.3 % (0-2); Eosinophils Absolute Auto 0.1 X10*3/uL (0.0-0.4); Eosinophils Percent Auto 1.1 % (0-4); Hematocrit 50.1 % (42.0-52.0); Hemoglobin 17.3 g/dl (14.0-18.0); Imm Gran Abs Auto 0.02 X10*3/uL (0.00-0.03); Imm Gran Pct Auto 0.3 % (0.0-0.4); Lymphocytes Absolute Auto 1.4 X10*3/uL (1.2-4.9); Lymphocytes Percent Auto 18.9 % (20-40); Mean Corpuscular HGB Conc 34.5 g/dl (31.0-36.0); Mean Corpuscular Hemoglobin 30.5 pg (27.0-33.0); Mean Corpuscular Volume 88.2 fL (80.0-98.0); Mean Platelet Volume 12.1 fL (9.4-12.4); Monocytes Absolute Auto 0.3 X10*3/uL (0.1-1.2); Monocytes Percent Auto 4.1 % (2-11); Neutrophils Absolute Auto 5.3 x10*3/uL (2.0-8.3); Neutrophils Percent Auto 74.3 % (45-73); Platelet Count 173 X10*3/uL (160-400); Red Blood Count 5.68 X10*6/uL (4.60-5.80); Red Cell Distribution Width 11.5 % (11.0-16.0); White Blood Count 7.2 X10*3/uL (4.8-10.8)
[2025-02-02 14:20] LABS: Appearance Urine Clear; Color Urine Yellow; Glucose Urine UA Negative (Negative); Leukocyte Esterase Urine Negative (Negative); Nitrite Urine Negative (Negative); PH 5.5 (5.0-9.0); Specific Gravity - Urine 1.025 (1.005-1.025); Urine Blood Negative (Negative); Urine Ketones Trace mg/dL (Negative); Urine Protein Negative (Neg-Trace)
[2025-02-02 14:23] LABS: Bacteria Urine None Seen (None Seen); Hyaline Casts Urine 0-2 /LPF (0-2); RBC Urine 0-2 /HPF (0-2); Squamous Epithelial Cell Urine 0-2 /HPF (0-2); WBC Urine 0-5 /HPF (0-5)
[2025-02-02 14:41] LABS: Alanine Aminotransferase 28 U/L (0-40); Albumin Level 4.6 g/dL (3.5-5.0); Anion Gap 13 (12-20); Aspartate Amino Transferase 27 U/L (5-37); Bilirubin Total 0.4 mg/dL (0.0-1.0); Blood Urea Nitrogen 12 mg/dL (9-16); Calcium 9.1 mg/dL (8.4-10.2); Carbon Dioxide 25 mmol/L (22-29); Chloride 107 mmol/L (96-108); Creatinine Clr Calc Pharmacy 136.2; Estimated Glomerular Filt Rate > 60; Glucose Random 155 mg/dL (60-115); Lipase 22 U/L (8-78); Potassium 3.7 mmol/L (3.3-5.1); Sodium 141 mmol/L (135-145); Total Protein 7.4 g/dL (6.5-8.0)
[2025-02-02 15:47] LABS: CT PCR NOT DETECTED (Not Detect.); NG PCR NOT DETECTED (Not Detect.)
[2025-02-02 15:53] LABS: Alkaline Phosphatase 108 U/L (39-117)
[2025-02-02] MEDS: Ketorolac Tromethamine 15 MG/ML VIAL IVPUSH (17:57)
[2025-02-02] MEDS: 0.9 % Sodium Chloride 1,000 ML 999 ML IV (17:57)
[2025-02-02 18:58] VITALS: BP 142/82; PULSE 90; RESP 18; TEMP 36.8; O2SAT 100
--- OUTSIDE RECORDS SUMMARY | 2025-02-02 18:58 | XMS_ITS | Encounter Summary ---
Author Organization [employer] [facility] Address [address] [place] [address] Care Team Providers Care Field Support Rep Name Role Phone Gwen Claudio MD Primary Care Provider [phone] Encounter Details Date Type Department Care Team (Late st Contact Info) Description 07/31/2023 Abstract [facility] [address] [place] [address] Jaspreet Sanders DDS [address] [place] [address] Social History Tobacco Use Types Packs/Day Years [...] Care Team (Late st Contact Info) Description 03/21/2025 1:30 PM EDT Office Visit [facility] [address] [place] [address] Gwen Claudio MD [address] [place] [address] 06/19/2025 3:00 PM EDT Office Visit [facility] [address] [place] [address] Cinthia Alston [address] [place] [address] documented as of this encounter Visit Diagnoses Not on filedocumented in this encounter Care Teams Field Support Rep Relationship Specialty Start Date End Date Gwen Claudio MD [address] [place] [address] PCP - General Family Medicine 10/03/14 documented as of this encounter
--- OUTSIDE RECORDS SUMMARY | 2025-02-02 18:58 | XMS_ITS | Encounter Summary ---
Author Organization [employer] Address [address] [place] [address] Care Team Providers Care Lamination Inspector Name Role Phone Gwen Claudio MD Primary Care Provider [phone] Encounter Details Date Type Department Care Team (Late st Contact Info) Description 02/02/2025 Orders Only GENERIC EXTERNAL DATA DEPARTMENT Provider, Generic External Data Social History Tobacco Use Types Packs/Day Years [...] Description 03/21/2025 1:30 PM EDT Office Visit [facility] [address] [place] [address] Gwen Claudio MD [address] [place] [address] 06/19/2025 3:00 PM EDT Office Visit [facility] [address] [place] [address] Alecia, Cinthia [address] [place] [address] documented as of this encounter Procedures Procedure Name Priority Date/Time Associated Diagnosis Comments US SCROTUM DOPPLER Routine 02/02/2025 2: 56 PM EDT URINALYSIS, COMPLETE, WITH REFLEX TO CULTURE Routine 02/02/2025 2:07 PM EDT CBC WITH AUTO DIFFERENTIAL Routine 02/02/2025 2:07 PM EDT CHLAMYDIA/N. GONORRHOEAE RNA, TMA, UROGENITAL Routine 02/02/2025 2:07 PM EDT LIPASE Routine 02/02/2025 2:07 PM EDT COMPREHENSIVE METABOLIC PANEL Routine 02/02/2025 2:07 PM EDT documented in this encounter Results * US SCROTUM DOPPLER (02/02/2025 2:56 PM EDT) Anatomical Region Laterality Modality Abdomen Ultrasound 02/02/2025 2:56 PM EDT Narrative 02/02/2025 3:41 PM EDT ? [facility] ?[address] ?[place] [address] ? Ultrasound Report ? Signed ? Patient: Noel Lundberg,Jamal J ?MR#: ?? [id number] ? : 1995 ?Acct:[id number] ? Age/Sex: 29 / M ?ADM Date: 02/02/25 ? Loc: HO.ED ? Attending Dr: ? Ordering Physician: Gino Johnston ?? Date of Service: 02/02/25 ?? Procedure(s): US scrotum doppler ?? Accession Number(s): [id number] ? cc: Gino Johnston; Gwen Claudio MD ? EXAMINATION: US SCROTUM WITH DOPPLER COMPLETE ? HISTORY: TESTICULAR PAIN. ? COMPARISON: There are no prior studies for comparison. ? FINDINGS: ??Real-time grayscale ultrasound imaging of the scrotum was ?? performed. Color and spectral Doppler analysis was also performed. ? RIGHT TESTICLE: ??The right testis measures 4.9 x 2.3 x 3.0 cm and ?? demonstrates extensive microlithiasis. ??No masses are seen. ??The right ?? testis demonstrates normal arterial and venous color Doppler and ?? spectral waveforms. ? RIGHT EPIDIDYMIS: Normal in size, shape, and vascularity. ? LEFT TESTICLE: ??The left testis measures 4.6 x 2.2 x 3.1 cm and ?? demonstrates extensive microlithiasis. ??No masses are seen. ??The left ?? testis demonstrates normal arterial and venous color Doppler and ?? spectral waveforms. ? LEFT ??EPIDIDYMIS: Normal in size, shape, and vascularity. ? VARICOCELE: None. ? HYDROCELE: No significant hydrocele is seen. ? OTHER COMMENTS: None. ? US/US scrotum doppler ?? IMPRESSION: ??Bilateral testicular microlithiasis. Careful clinical ?? history for the elucidation of risk factors for testicular carcinoma is ?? recommended. Otherwise unremarkable scrotal ultrasound. ? Electronically signed by: ??Arron Belcher MD ??02/02/2025 03:39 PM EDT ?? RP ? Dictated By: ?Arron Belcher MD ? Signed By: ?<Electronically signed by Arron Belcher MD in OV> ?02/02/25 1539 ? DD/DT: / 1456 ? TD/TT: 02/02/25 1507 ? Relations Manager: ? Procedure Note Donotuseinterpreter, Image - 02/02/2025 [place] [id number] Ultrasound Report Signed Patient: Jamal Romero JMR#: [id number] : 1995Acct:[id number] Age/Sex: Date: 02/02/25 Loc: .ED Attending Dr: Ordering Physician: Gino Johnston Date of Service: 02/02/25 Procedure(s): US scrotum doppler Accession Number(s): [id number] cc: Gino Johnston; Gwen Claudio MD EXAMINATION: US SCROTUM WITH DOPPLER COMPLETE HISTORY: TESTICULAR PAIN. COMPARISON: There are no prior studies for comparison. FINDINGS: Real-time grayscale ultrasound imaging of the scrotum was performed. Color and spectral Doppler analysis was also performed. RIGHT TESTICLE: The right testis measures 4.9 x 2.3 x 3.0 cm and demonstrates extensive microlithiasis. No masses are seen. The right testis demonstrates normal arterial and venous color Doppler and spectral waveforms. RIGHT EPIDIDYMIS: Normal in size, shape, and vascularity. LEFT TESTICLE: The left testis measures 4.6 x 2.2 x 3.1 cm and demonstrates extensive microlithiasis. No masses are seen. The left testis demonstrates normal arterial and venous color Doppler and spectral waveforms. LEFT EPIDIDYMIS: Normal in size, shape, and vascularity. VARICOCELE: None. HYDROCELE: No significant hydrocele is seen. OTHER COMMENTS: None. US/US scrotum doppler IMPRESSION: Bilateral testicular microlithiasis. Careful clinical history for the elucidation of risk factors for testicular carcinoma is recommended. Otherwise unremarkable scrotal ultrasound. Electronically signed by: Arron Belcher MD 02/02/2025 03:39 PM EDT RP Dictated By: Arron Belcher MD Signed By: <Electronically signed by Arron Belcher MD in OV> 02/02/25 1539 DD/ 1456 TD/TT: 02/02/25 1507 Relations Manager: [facility] External Provider IMG US PROCEDURES Final Result * Chlamydia/N. Gonorrhoeae RNA, TMA, Urogenitial (02/02/2025 2:07 PM EDT) CT PCR NOT DETECTED Not Detect. [facility] Comment:A not detected test result does not exclude the possibilityof infection because test results can be affected byimproper specimen collection, concurrent antibiotic therapy,or the number of organisms in the specimen which may bebelow the sensitivity of the test. As with many diagnostictests, results from the Xpert CT/NG assay should beinterpreted in conjunction with other laboratory andclinical data available to the clinician.Xpert CT/NG performance has not been evaluated in patientsless than 14 years of age. The assay should not be used forthe evaluationof suspected sexual abuse or for other medico-legalindications. Additional testing is recommended in anycircumstance when false positive or false negative resultscould lead to adverse medical, social or psychologicalconsequences. NG PCR NOT DETECTED Not Detect. [facility] Comment:A not detected test result does not exclude the possibilityof infection because test results can be affected byimproper specimen collection, concurrent antibiotic therapy,or the number of organisms in the specimen which may bebelow the sensitivity of the test. As with many diagnostictests, results from the Xpert CT/NG assay should beinterpreted in conjunction with other laboratory andclinical data available to the clinician.Xpert CT/NG performance has not been evaluated in patientsless than 14 years of age. The assay should not be used forthe evaluationof suspected sexual abuse or for other medico-legalindications. Additional testing is recommended in anycircumstance when false positive or false negative resultscould lead to adverse medical, social or psychologicalconsequences. 02/02/2025 2:07 PM EDT 02/02/2025 2:14 PM EDT Narrative [facility] - 02/02/2025 3:47 PM EDT Urine Generic External Data Provider LAB MICROBIOLOGY - GENERAL ORDERABLES Final Result Performing Organization Address [facility]/ZIP Co de Phone Number [facility] [address] [place] [phone] * Lipase (02/02/2025 2:07 PM EDT) Lipase 22 8 - 78 U/L [facility] 02/02/2025 2:07 PM EDT 02/02/2025 2:14 PM EDT Generic External Data Provider LAB BLOOD ORDERAB LES Final Result Performing Organization Address [facility] de Phone Number [facility] [address] [place] [phone] * (ABNORMAL) Comprehensive Metabolic Panel (02/02/2025 2:07 PM EDT) Pathologist [facility] Sodium 141 135 - 145 mmol/L [facility] Potassium 3.7 3.3 - 5.1 mmol/L [facility] Chloride 107 96 - 108 mmol/L [facility] Carbon Dioxide 25 22 - 29 mmol/L [facility] Anion Gap 13 12 - 20 [facility] Urea Nitrogen (BUN) 12 9 - 16 mg/dL [facility] Creatinine, Serum 0.92 0.5 - 1.4 mg/dL [facility] Creatinine Clr Calc Pharmacy 136.2 [facility] Comment:eGFR (calculated fro m the MDRD study equation) and eCrCl(calculated from the Cockcroft-Gault equation) are based ondifferent parameters and may not yield comparable results.If eCrCl result is absurd, please check patient'sheight/weight. Estimated Glomerular Filt Rate >60 [facility] Comment:Chronic Kidney Disea se: Estimated GFR < 60 mL/min/1.88t3Sasobd Kidney Disease: Estimated GFR < 15 mL/min/1.73m2 Glucose 155(H) 60 - 115 mg/dL [facility] Calcium 9.1 8.4 - 10.2 mg/dL [facility] Bilirubin, Total 0.4 0.0 - 1.0 mg/dL [facility] Aspartate Amino Transferase 27 5 - 37 U/L [facility] Alanine Aminotransferase 28 0 - 40 U/L [facility] Total Protein 7.4 6.5 - 8.0 g/dL [facility] Albumin Level 4.6 3.5 - 5.0 g/dL [facility] Alkaline Phosphatase 108 39 - 117 U/L [facility] 02/02/2025 2:07 PM EDT 02/02/2025 2:14 PM EDT us Generic External Data Provider LAB BLOOD ORDERAB LES Final Result [facility] [address] [place] [address] [phone] * Urinalysis, Complete, with Reflex to Culture (02/02/2025 2:07 PM EDT) Color Urine Yellow [facility] Appearance Urine Clear [facility] PH 5.5 5.0 - 9.0 [facility] Glucose Urine UA Negative Negative mg/dL [facility] Urine Blood Negative Negative [facility] Specific [place] - Urine 1.025 1.005 - 1.025 [facility] Urine Protein Negative Neg-Trace mg/dL [facility] Urine Ketones Trace Negative mg/dL [facility] Nitrite Urine Negative Negative [facility] Leukocyte Esterase Urine Negative Negative [facility] RBC Urine 0-2 0 - 2 /HPF [facility] Urine WBC 0-5 0 - 5 /HPF [facility] Urine Squamous Epithelial Cell 0-2 0 - 2 /HPF [facility] Urine Bacteria None Seen None Seen [facility] Hyaline Casts, Urine 0-2 0 - 2 /LPF [facility] 02/02/2025 2:07 PM EDT 02/02/2025 2:14 PM EDT Narrative [facility] - 02/02/2025 2:25 PM EDT [id number], Clean Catch us Generic External Data Provider LAB URINE ORDERAB LES Final Result [facility] [address] [place] [phone] * (ABNORMAL) CBC auto differential (02/02/2025 2:07 PM EDT) White Blood Count 7.2 4.8 - 10.8 X10*3/uL [facility] Red Blood Count 5.68 4.60 - 5.80 X10*6/uL [facility] Hemoglobin 17.3 14.0 - 18.0 g/dl [facility] Hematocrit 50.1 42.0 - 52.0 % [facility] Mean Corpuscular Volume 88.2 80.0 - 98.0 fL [facility] Mean Corpuscular Hemoglobin 30.5 27.0 - 33.0 pg [facility] Mean Corpuscular HGB Conc 34.5 31.0 - 36.0 g/dl [facility] Red Cell Distribution Width 11.5 11.0 - 16.0 % [facility] Platelet Count 173 160 - 400 X10*3/uL [facility] Mean Platelet Volume 12.1 9.4 - 12.4 fL [facility] Neutrophils Percent Auto 74.3(H) 45 - 73 % [facility] Imm Gran Pct Auto 0.3 0.0 - 0.4 % [facility] Lymphocytes Percent Auto 18.9(L) 20 - 40 % [facility] Monocytes Percent Auto 4.1 2 - 11 % [facility] Eosinophils Percent Auto 1.1 0 - 4 % [facility] Basophils Percent Auto 1.3 0 - 2 % [facility] NRBC Pct Auto 0.0 0.0 - 0.2 /100WBC [facility] Neutrophils Absolute Auto 5.3 2.0 - 8.3 x10*3/uL [facility] Imm Gran Abs Auto 0.02 0.00 - 0.03 X10*3/uL [facility] Lymphocytes Absolute Auto 1.4 1.2 - 4.9 X10*3/uL [facility] Monocytes Absolute Auto 0.3 0.1 - 1.2 X10*3/uL [facility] Eosinophils Absolute Auto 0.1 0.0 - 0.4 X10*3/uL [facility] Basophils Absolute Auto 0.1 0.0 - 0.2 X10*3/uL [facility] NRBC Abs Auto 0.000 0.0 - 0.012 X10*3/uL [facility] 02/02/2025 2:07 PM EDT 02/02/2025 2:14 PM EDT us Generic External Data Provider LAB BLOOD ORDERAB LES Final Result [facility] [address] [place] [phone] documented in this encounter Visit Diagnoses Not on filedocumented in this encounter Additional Health Concerns Assessment Noted Time PHQ-9 Depression Total Score: 8 11/29/19 25 3:01 PM EDT documented as of this encounter Care Teams Lamination Inspector Relationship Specialty Start Date End Date Gwen Claudio MD [address] [place] [address] PCP - General Family Medicine 10/03/14 documented as of this encounter
--- OUTSIDE RECORDS SUMMARY | 2025-02-02 18:58 | XMS_ITS | Encounter Summary ---
Author Organization [employer] Address [address] [place] [address] Care Team Providers Care Oral And Maxillofacial Pathologist Name Role Phone Gwen Claudio MD Primary Care Provider [phone] Encounter Details Date Type Department Care Team (Late st Contact Info) Description 08/18/2023 Abstract [facility] [address] [place] [address] Donis Mcguire, DMD [address] [place] [address] Social History Tobacco Use Types Packs/Day Years [...] Description 03/21/2025 1:30 PM EDT Office Visit [facility] [address] [place] [address] Gwen Claudio MD [address] [place] [address] 06/19/2025 3:00 PM EDT Office Visit [facility] [address] [place] [address] Cinthia Alston [address] [place] [address] documented as of this encounter Visit Diagnoses Not on filedocumented in this encounter Care Teams Oral And Maxillofacial Pathologist Relationship Specialty Start Date End Date Gwen Claudio MD [address] [place] [address] PCP - General Family Medicine 10/03/14 documented as of this encounter
--- OUTSIDE RECORDS SUMMARY | 2025-02-02 18:58 | XMS_ITS | Clinical Summary ---
Author Organization [employer] Address [address] [facility] 7t [place] [address] Care Team Providers Care Sex Worker Or Escort Name Role Phone Gwen Claudio MD Primary Care Provider [phone] Allergies No known active allergies Medications * This document contains information received from the source organization and may not represent a complete record from that organization. albuterol (2.5 MG/3ML) 0.083% nebulizer solution inhale 3 milliliter (2.5MG) by nebulization route every 4-6 hours as needed for difficulty breathing, up to 4 times/day as needed 2 Active Blood Pressure Monitor kit Check blood pressure once daily and as needed 1 kit 4 Active buPROPion XL (Wellbutrin XL) 150 MG 24 hr tablet Take 1 tablet (150 mg) by mouth Once per day. Do not crush, chew, or split. 30 tablet 11 4 05/03/20 25 Active albuterol 108 (90 Base) MCG/ACT inhaler Inhale 2 puffs every 4 (four) hours if needed for wheezing or shortness of breath. Maximum 8 puffs per day 18 g 3 4 05/03/20 25 Active ketoconazole (NIZOral) 2 % cream Apply topically Once per day. 60 g 3 4 Active nicotine polacrilex (Nicorette) 4 MG gum Chew 1 piece every 2-3 hours as needed. 100 each 3 4 Active nicotine (Nicoderm CQ) 14 MG/24HR patch Place 1 patch on the skin 1 (one) time each day at the same time. 30 patch 4 Active Multiple Vitamin (multivitamin) tablet Take 1 tablet by mouth Once per day. 90 tablet 3 4 Active fluticasone (Flonase) 50 MCG/ACT nasal spray Administer 1-2 sprays into each nostril Once per day. Shake gently. Before first use, prime pump. After use, clean tip and replace cap. 16 g 2 4 08/29/20 25 Active cetirizine (ZyrTEC) 10 MG tablet Take 1 tablet (10 mg) by mouth Once per day. 30 tablet 11 4 08/29/20 25 Active hydrOXYzine pamoate (Vistaril) 25 MG capsule Take 1 capsule by mouth twice daily as needed for anxiety 60 capsule 3 4 Active Tirzepatide-Yony ght Management (Zepbound) 5 MG/0.5ML solution auto-injector Inject 0.5 mL (5 mg) under the skin 1 (one) time per week. 2 mL 11 5 Active cloNIDine (Catapres) 0.1 MG tablet Take 1 tablet (0.1 mg) by mouth if needed at bedtime (difficulty sleeping). 90 tablet 3 5 11/29/19 26 Active cyclobenzaprine (Flexeril) 10 MG tablet TAKE 1 TABLET BY MOUTH EVERY DAY AT BEDTIME NEEDED FOR MUSCLE SPASMS 30 tablet 1 5 Active amoxicillin (Amoxil) 500 MG capsule Take 4 capsules of amoxicillin 500 mg 1 hour prior dental procedure 12 capsule 5 Active Active Problems Problem Noted Date Diagnosed Date [...] expressed an interest in the programs in [place]. 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 We discussed about the importance of [...] s/p physical therapy - will refer to catalog specialist Assessment & Plan (12/18/2023 12:31 AM [...] 10/16/2014 06/30/2023 12/18/2023 Impulse control disorder 10/16/2014 06/30/20234 Encounters * This document contains information received from the source organization and may not represent a complete record from that organization. Date Type Department Care Team Description 02/02/2025 Orders Only GENERIC EXTERNAL DATA DEPARTMENT Provider, Generic External Data 01/19/2025 Telephone [facility] ADULT DENTAL [address] [place] [address] Ashley Tayler, DDS 12/26/2024 Telephone [facility] OPTOMETRY [address] [place] [address] Yared Jasmyn, OD 12/21/2024 Population Health Risk Score Community [facility] (C3) Department [address] [phone] Provider, Population Health Generic 12/13/2024 3:00 PM EDT Office Visit [facility] ADULT DENTAL [address] [place] [address] Cinthia Alston Dental calculus (Primary Dx); Encounter for dental examination; Dental plaque; Dental caries 12/08/2024 Telephone [facility] MEDICINE [address] [place] [address] Gwen Claudio MD Referral 12/07/2024 Refill [facility] MEDICINE [address] [place] [address] Gwen Claudio MD 12/05/2024 Telephone [facility] MEDICINE [address] [place] [address] Kati Caro LPN 12/05/2024 Telephone [facility] MEDICINE [address] [place] [address] Gwen Claudio MD Prior Authorization ( [place] Request: Zepbound) 11/28/2024 3:15 PM EDT Office Visit [facility] MEDICINE [address] [place] [address] Gwen Claudio MD Sleep disturbance (Primary Dx); Mild persistent asthma without complication; Elevated BP without diagnosis of hypertension; Class 2 severe obesity due to excess calories with serious comorbidity and body mass index (BMI) of 36.0 to 36.9 in adult ([facility]); Tobacco dependence syndrome; Anxiety; Depression, unspecified depression type; Allergic rhinitis, unspecified seasonality, unspecified trigger; Dietary counseling; Exercise counseling; Psychophysiological insomnia 11/28/2024 Travel 11/24/2024 Telephone [facility] MEDICINE [address] [place] [address] [phone] Gwen Claudio MD chart prep from Last 3 Months Immunizations Immunization Administration Dates Next Due Influenza injectable quadriv [...] Description 03/21/2025 1:30 PM EDT Office Visit [facility] MEDICINE [address] [place] [phone] Gwen Claudio MD [address] [place] [address] 06/19/2025 3:00 PM EDT Office Visit [facility] ADULT DENTAL [address] [place] [address] Cinthia Alston [address] [place] [address] Health Maintenance Due Date Last Done Comments Lipid Panel 1995 Family Planning (PISQ) 2010 Hepatitis B Vaccines (1 of 3 - 19+ 3-dose series) 2014 Pneumococcal Vaccine: Pediatrics (0 to 5 Years) and At-Risk Patients (6 to 49) Years) (2 of 2 - PCV) 07/01/2019 07/01/2018 COVID-19 Vaccine ( - season) 2024 11/27/2022, 03/08/2021 Influenza Vaccine (#1) 2024 8, 12/03/2015, 10/16/2014 SDOH Screening 03/03/2025 03/03/2024 Dental Oral Exam 06/16/2025 12/13/2024, 11/2022, 01/27/2022, Additional history exists Dental Prophylaxis 06/16/2025 12/13/2024, 1 09/26/2022, 01/27/2022, Additional history exists Alcohol/Substance Use Screening 08/29/2025 08/29/2024 Depression Screening 11/28/2025 11/28/2024, 11/29/19 Tobacco Screening 12/13/2025 12/13/2024 Dental X-Ray: Bitewings 12/14/2025 12/14/19, 07/27/2023, 06/23/2023, Additional history exists Dental X-Ray: [...] patient's age to complete this topic Meningococcal B Vaccine Aged Out No l onger eligible based on patient's age to complete [...] DOPPLER Routine 02/02/2025 2: 56 PM EDT LIPASE Routine 02/02/2025 2:07 PM EDT COMPREHENSIVE METABOLIC PANEL Routine 02/02/2025 2:07 PM EDT URINALYSIS, COMPLETE, WITH REFLEX TO CULTURE Routine 02/02/2025 2:07 PM EDT CBC WITH AUTO DIFFERENTIAL Routine 02/02/2025 2:07 PM EDT CHLAMYDIA/N. GONORRHOEAE RNA, TMA, UROGENITAL Routine 02/02/2025 2:07 PM EDT PERIODIC ORAL EVALUATION - ESTABLISHED PATIENT Routine [...] Recently Relevant to Health Maintenance Results * US SCROTUM DOPPLER (02/02/2025 2:56 PM EDT) Anatomical Region Laterality Modality Abdomen Ultrasound 02/02/2025 2:56 PM EDT Narrative 02/02/2025 3:41 PM EDT ? [facility] ?[address] ?[place] [address] ? Ultrasound Report ? Signed ? Patient: Jamal Romero ?MR#: ?? [id number] ? : 1995 ?Acct:[id number] ? Age/Sex: 29 / M ?ADM Date: 02/02/25 ? Loc: HO.ED ? Attending Dr: ? Ordering Physician: Gino Johnston ?? Date of Service: 02/02/25 ?? Procedure(s): US scrotum doppler ?? Accession Number(s): [id number] ? cc: Gino Johnston; Gwen Claudio MD [...] ??Arron Belcher MD ??02/02/2025 03:39 PM EDT ? Dictated By: ?Arron Belcher MD ? Signed By: ?<Electronically signed by Arron Belcher MD in OV> ?02/02/25 1539 ? DD/ 1456 ? TD/TT: 02/02/25 1507 ? Platform Mill Supervisor: ? Procedure Note Donherlinda, Gisele - 02/02/2025 [place] [address] Ultrasound Report Signed Patient: Jamal Romero JMR#: [id number] : 1995Acct:[id number] Age/Sex: 29 MADM Date: 02/02/25 Loc: HO.ED Attending Dr: Ordering Physician: Gino Johnston Date of Service: 02/02/25 Procedure(s): US scrotum doppler Accession Number(s): [id number] cc: Gino Johnston; Gwen Claudio MD EXAMINATION: [...] Arron Belcher MD 02/02/2025 03:39 PM EDT Dictated By: Arron Belcher MD Signed By: <Electronically signed by Arron Belcher MD in OV> 02/02/25 1539 DD/ 1456 TD/TT: 02/02/25 1507 Platform Mill Supervisor: [facility] External Provider IMG US PROCEDURES Final Result * Urinalysis, Complete, with Reflex to Culture (02/02/2025 2:07 PM EDT) Color Urine Yellow [facility] Appearance Urine Clear [facility] PH 5.5 5.0 - 9.0 [facility] Glucose Urine UA Negative Negative mg/dL [facility] Urine Blood Negative Negative [facility] Specific [place] - Urine 1.025 1.005 - 1.025 [facility] Urine Protein Negative Neg-Trace mg/dL [facility] Urine Ketones Trace Negative mg/dL [facility] Nitrite Urine Negative Negative [facility] Leukocyte Esterase Urine Negative Negative [facility] RBC Urine 0-2 0 - 2 /HPF [facility] Urine WBC 0-5 0 - 5 /HPF [facility] Urine Squamous Epithelial Cell 0-2 0 - 2 /HPF [facility] Urine Bacteria None Seen None Seen [facility] Hyaline Casts, Urine 0-2 0 - 2 /LPF [facility] 02/02/2025 2:07 PM EDT 02/02/2025 2:14 PM EDT Narrative [facility] - 02/02/2025 2:25 PM EDT [id number], [employer] us Generic External Data Provider LAB URINE ORDERAB LES Final Result [facility] [address] [place] [address] [phone] * (ABNORMAL) CBC auto differential (02/02/2025 2:07 PM EDT) White Blood Count 7.2 4.8 - 10.8 X10*3/uL [facility] Red Blood Count 5.68 4.60 - 5.80 X10*6/uL [facility] Hemoglobin 17.3 14.0 - 18.0 g/dl [facility] Hematocrit 50.1 42.0 - 52.0 % [facility] Mean Corpuscular Volume 88.2 80.0 - 98.0 fL [facility] Mean Corpuscular Hemoglobin 30.5 27.0 - 33.0 pg [facility] Mean Corpuscular HGB Conc 34.5 31.0 - 36.0 g/dl [facility] Red Cell Distribution Width 11.5 11.0 - 16.0 % [facility] Platelet Count 173 160 - 400 X10*3/uL [facility] Mean Platelet Volume 12.1 9.4 - 12.4 fL [facility] Neutrophils Percent Auto 74.3(H) 45 - 73 % [facility] Imm Gran Pct Auto 0.3 0.0 - 0.4 % [facility] Lymphocytes Percent Auto 18.9(L) 20 - 40 % [facility] Monocytes Percent Auto 4.1 2 - 11 % [facility] Eosinophils Percent Auto 1.1 0 - 4 % [facility] Basophils Percent Auto 1.3 0 - 2 % [facility] NRBC Pct Auto 0.0 0.0 - 0.2 /100WBC [facility] Neutrophils Absolute Auto 5.3 2.0 - 8.3 x10*3/uL [facility] Imm Gran Abs Auto 0.02 0.00 - 0.03 X10*3/uL [facility] Lymphocytes Absolute Auto 1.4 1.2 - 4.9 X10*3/uL [facility] Monocytes Absolute Auto 0.3 0.1 - 1.2 X10*3/uL [facility] Eosinophils Absolute Auto 0.1 0.0 - 0.4 X10*3/uL [facility] Basophils Absolute Auto 0.1 0.0 - 0.2 X10*3/uL [facility] NRBC Abs Auto 0.000 0.0 - 0.012 X10*3/uL [facility] 02/02/2025 2:07 PM EDT 02/02/2025 2:14 PM EDT us Generic External Data Provider LAB BLOOD ORDERAB LES Final Result [facility] [address] [place] [address] [phone] * Chlamydia/N. Gonorrhoeae RNA, TMA, Urogenitial (02/02/2025 2:07 PM EDT) CT PCR NOT DETECTED Not Detect. [facility] Comment:A not detected test result does [...] psychologicalconsequences. NG PCR NOT DETECTED Not Detect. [facility] Comment:A not detected test result does [...] PM EDT 02/02/2025 2:14 PM EDT Narrative [facility] - 02/02/2025 3:47 PM EDT Urine Generic External Data Provider LAB MICROBIOLOGY - GENERAL ORDERABLES Final Result Performing Organization Address [facility]/ZIP Co de Phone Number [facility] [address] [place] [phone] * Lipase (02/02/2025 2:07 PM EDT) Lipase 22 8 - 78 U/L [facility] 02/02/2025 2:07 PM EDT 02/02/2025 2:14 PM EDT Generic External Data Provider LAB BLOOD ORDERAB LES Final Result Performing Organization Address [facility] Co de Phone Number [facility] [address] [place] [phone] * (ABNORMAL) Comprehensive Metabolic Panel (02/02/2025 2:07 PM EDT) Sodium 141 135 - 145 mmol/L [facility] Potassium 3.7 3.3 - 5.1 mmol/L [facility] Chloride 107 96 - 108 mmol/L [facility] Carbon Dioxide 25 22 - 29 mmol/L [facility] Anion Gap 13 12 - 20 [facility] Urea Nitrogen (BUN) 12 9 - 16 mg/dL [facility] Creatinine, Serum 0.92 0.5 - 1.4 mg/dL [facility] Creatinine Clr Calc Pharmacy 136.2 [facility] Comment:eGFR (calculated fro m the MDRD study equation) and eCrCl(calculated from the Cockcroft-Gault equation) are based ondifferent parameters and may not yield comparable results.If eCrCl result is absurd, please check patient'sheight/weight. Estimated Glomerular Filt Rate >60 [facility] Comment:Chronic Kidney Disea se: Estimated GFR < 60 mL/min/1.85v9Uizxla Kidney Disease: Estimated GFR < 15 mL/min/1.73m2 Glucose 155(H) 60 - 115 mg/dL [facility] Calcium 9.1 8.4 - 10.2 mg/dL [facility] Bilirubin, Total 0.4 0.0 - 1.0 mg/dL [facility] Aspartate Amino Transferase 27 5 - 37 U/L [facility] Alanine Aminotransferase 28 0 - 40 U/L [facility] Total Protein 7.4 6.5 - 8.0 g/dL [facility] Albumin Level 4.6 3.5 - 5.0 g/dL [facility] Alkaline Phosphatase 108 39 - 117 U/L [facility] 02/02/2025 2:07 PM EDT 02/02/2025 2:14 PM EDT us Generic External Data Provider LAB BLOOD ORDERAB LES Final Result [facility] [address] [place] [address] [phone] * HEPATITIS C AB W/REFL TO HCV RNA, QN, PCR (05/06/2021 11:56 AM EDT) HEPATITIS C ANTIBODY NON-REACT CELIA NON-REACT CELIA [employer] [facility] INDEX 0.02 <1.00 [facility] Comment: ?? HCV antibody was non-reactive. There is no laboratory ?? evidence of HCV infection. ?? In most cases, no further action is required. However, if recent HCV exposure is suspected, a test for HCV RNA (test code 92005) is suggested. ?? For additional information please refer to http://ChoicePass.Ophis Vape/faq/FFV06x0 (This link is being provided for informational/ educational purposes only.) ?? 05/06/2021 11:5 6 AM EDT Gwen Claudio MD HISTORICAL/NON ORDERABLE LABS Fi nal Result Performing Organization Address [facility] de Phone Number [facility] [address] * HIV 1/2 ANTIGEN/ANTIBODY,FOURTH GENERATION W/RFL (05/06/2021 11:56 AM EDT) [facility] HIV-1/2 ANTIGEN AND ANTIBODIES, 4TH GENERATION W/ REFLEX NON-REACT CELIA NON-REACT CELIA [facility] Comment: HIV-1 antigen and HIV-1/HIV-2 [...] ? For additional information please refer to http://ChoicePass.Ophis Vape/faq/VQP058 (This link is being provided for informational/ educational purposes only.) ? The performance of this assay has not been clinically validated in patients less than 2 years old. ?? 05/06/2021 11:5 6 AM EDT Gwen Claudio MD LAB BLOOD ORDERABLES Final Resul t Performing Organization Address [facility] Phone Number [facility] [address] from Last 3 Months or Most Recently Relevant to Health Maintenance [facility]ULT [facility] GENERIC TPL on file Care Teams Sex Worker Or Escort Relationship Specialty Start Date End Date Gwen Claudio MD [address] [place] [phone] PCP - General Family Medicine 10/03/14
--- OUTSIDE RECORDS SUMMARY | 2025-02-02 18:58 | XMS_ITS | Encounter Summary ---
Author Organization [facility] Address [address] [facility] 7t [place] [address] Care Team Providers Care Lime Sludge Kiln Operator Name Role Phone Gwen Claudio MD Primary Care Provider [phone] Encounter Details Date Type Department Care Team (Latest Contact Info) Description 01/27/2022 Abstract [facility] CONVERSION[facility] Dental, Provider, DDS Social History [...] Description 03/21/2025 1:30 PM EDT Office Visit [facility] MEDICINE [address] [place] [address] Gwen Claudio MD [address] [place] [address] 06/19/2025 3:00 PM EDT Office Visit [facility] ADULT DENTAL [address] [place] [address] Alecia, Cinthia [address] [place] [address] documented as of this encounter Visit Diagnoses Not on filedocumented in this encounter Care Teams Lime Sludge Kiln Operator Relationship Specialty Start Date End Date Gwen Claudio MD [address] [place] [address] PCP - General Family Medicine 10/03/14 documented as of this encounter
--- OUTSIDE RECORDS SUMMARY | 2025-02-02 18:58 | XMS_ITS | Encounter Summary ---
Author Organization [employer] Address [address] [facility] 7t [place] [address] Care Team Providers Care Bridge/Structure Inspection Team Leader Name Role Phone Gwen Claudio MD Primary Care Provider [phone] Reason for Referral * Imaging (STAT) - Closed Specialty Diagnoses / Procedures Referred By [place] up Referred To Contact Radiology Diagnoses Closed nondisplaced fracture of scaphoid of left wrist, unspecified portion of scaphoid, initial encounter Procedures CT Wrist w/o Contrast Left Gwen Claudio MD [address] [place] [address] Phone: tel: fax: [address] Phone: tel: fax: Referral ID Status Reason Start Date Expiration Date Visits Re quested Visits Authorized [id number] Closed 02/04/2024 02/03/2025 1 1 * Imaging (STAT) - Canceled Specialty Diagnoses / Procedures Referred By Kashmir up Referred To Contact Radiology Diagnoses Closed nondisplaced fracture of scaphoid of left wrist, unspecified portion of scaphoid, initial encounter Procedures CT Hand w/o Contrast Left Gwen Claudio MD [address] [place] [address] Phone: tel: fax: [address] Phone: tel: fax: Referral ID Status Reason Start Date Expiration Date V isits Requested Visits Authorized [id number] Canceled 02/04/2024 02/03/2025 1 1 Encounter Details Date Type Department Care Team (Late st Contact Info) Description 02/04/2024 Orders Only [facility] MEDICINE [address] [place] [address] Gwen Claudio MD [address] [place] [address] Closed nondisplaced fracture of scaphoid of left [...] Description 03/21/2025 1:30 PM EDT Office Visit [facility] MEDICINE [address] [place] [phone] Gwen Claudio MD [address] [place] [phone] 06/19/2025 3:00 PM EDT Office Visit [facility] ADULT DENTAL [address] [place] [address] Cinthia Alston [address] [place] [address] Scheduled Orders Name Type Priority Associated Diagnoses [...] Primary documented in this encounter Care Teams Bridge/Structure Inspection Team Leader Relationship Specialty Start Date End Date Gwen Claudio MD [address] [place] [address] PCP - General Family Medicine 10/03/14 documented as of this encounter
[2025-02-02 19:20] VITALS: BP 142/82; PULSE 90; RESP 18; TEMP 36.8; O2SAT 100
== END 2025-02-02 19:21 | disposition home or self-care (01) ==
LOC: HO.ED 18:56
PROVIDERS: Physician Assistant; Emergency Provider Emergency Medicine Emergency Medical Services; PCP Family Medicine
DX: N50.89 Other specified disorders of the male genital organs (principal); N50.812 Left testicular pain; N50.811 Right testicular pain; M54.50 Low back pain, unspecified
CPT/HCPCS: 36415; 76870; 80053; 81001; 83690; 85025; 87491; 87591; 93975; 96374; 99283; 99284; J1885

== ENCOUNTER → 2025-02-02 13:55 | Outpatient (BNV) | payer SELFPAY | PROVIDERS: PCP Family Medicine; Visit Provider Radiology Diagnostic Radiology | DX: N50.89 Other specified disorders of the male genital organs (principal) | CPT/HCPCS: 76870; 93975 ==

== ENCOUNTER 2025-09-10 13:52 | Emergency (ER) | payer MEDICAID, SELFPAY ==
--- NOTE | 2025-09-10 14:01 | ED.FEVER ---
HPI - Fever General Chief Complaint: Nausea/Vomiting/Diarrhea Stated Complaint: fever, stomach pain, not eating for 2 days Time Seen by Provider: 09/10/25 14:07 Source: patient and cyber security specialist Mode of arrival: ambulatory Limitations: language barrier (declined-offered) History of Present Illness ED Provider: Dora Lora APRN HPI Narrative: 29-year-old male who denies any medical history presents to the emergency room with 2 days of diarrhea, fever and sore throat. Patient reports tactile fevers. He has had 14 episodes of diarrhea in the last 2 days. He reports decreased appetite and loss of taste and smell. He denies any nausea, vomiting. He does have a sore throat. No difficulty breathing or swallowing. No skin rash, neck pain, neck stiffness, cough, chest pain. His children are sick at home with similar symptoms Related Data Home Medications ?Medication ?Instructions ?Recorded ?Confirmed acetaminophen 500 mg tablet 500 mg PO Q6H PRN mild pain 12/12/24 12/26/24 albuterol sulfate 90 mcg/actuation 2 puff inhalation Q4H PRN wheezing 12/12/24 12/26/24 aerosol inhaler (Ventolin HFA) bupropion HCl 150 mg 24 hr tablet, 150 mg PO DAILY 12/12/24 12/26/24 extended release clonidine HCl 0.1 mg tablet 0.1 mg PO BEDTIME PRN insomnia 12/12/24 12/26/24 ketoconazole 2 % topical cream appl topical DAILY 12/12/24 12/26/24 multivitamin 1 tab PO QAM 12/12/24 12/26/24 nicotine (polacrilex) 4 mg gum 4 mg PO Q2-3H PRN 12/12/24 12/26/24 Allergies Allergy/AdvReac Type Severity Reaction Status Date / Time No Known Allergies Allergy Verified 09/10/25 14:04 Review of Systems Review of Systems: Yes all other systems are reviewed and are negative Constitutional: Constitutional: Reports no additional constitutional complaints, Denies body ache(s), Denies chills, Reports fever(s), Denies headache(s) and Denies weakness Eyes: Eyes: Reports no additional eye complaints and Denies change in vision ENT: Reports system reviewed and no additional complaints, except as documented, Denies dizziness, Denies headache(s), Denies nasal congestion, Denies nasal discharge, Denies neck pain and Reports sore throat Cardiovascular: Cardiovascular: Reports no additional cardiovascular complaints, Denies chest pain, Denies leg edema and Denies dyspnea Respiratory: Respiratory: Reports no additional respiratory complaints, Denies cough and Denies dyspnea Gastrointestinal: Gastrointestinal: Reports no additional gastrointestinal complaints, Denies abdominal pain, Reports diarrhea, Denies nausea and Denies vomiting Genitourinary: Genitourinary: Denies urinary incontinence Musculoskeletal: Musculoskeletal: Reports no additional musculoskeletal complaints, Denies back pain, Denies arthralgias, Denies joint swelling, Denies neck pain, Denies numbness and Denies tingling Integumentary/Breasts: Skin/Breast: Reports system reviewed and no additional complaints, except as docu and Denies rash Neurologic: Reports system reviewed and no additional complaints, except as documented, Denies Abnormal speech present, Denies dizziness, Denies headache(s), Denies numbness, Denies tingling and Denies weakness PMFSH Past Medical History Attestation statement: The following information was validated with the patient. Source: old records reviewed and nursing notes reviewed Medical History Asthma Anxiety Depression BMI 35.0-35.9,adult Hypoglycemia COVID Surgical History Hx of hand surgery Hx of eye surgery Hx of hernia repair Family History Family History Mother Mental health disorder Father Alcoholism Sister Cancer Sister Mental health disorder Brother No problems noted. Brother No problems noted. Daughter No problems noted. Son ADHD Maternal Grandmother Cancer Social History Social History Alcohol intake: current Alcohol intake frequency: holidays/special occasions only Patient Tobacco Use Status: Current everyday Tobacco user Tobacco use type: Cigarette Cigarettes Per Day: 5 Smoked in Last 30 Days: No Use of substances other than those prescribed or required for medical reasons: No Substance Use Type: Marijuana Advance Directives: No Advance Directives Information Provided: No Do you have a plan to hurt others: No Plan Current occupational status: unemployed Current occupation: rt handed Physical Exam Vital Signs: Vital Signs: Last Vital Signs Temp 98.5 F 09/10/25 15:09 Pulse 97 09/10/25 15:09 Resp 18 09/10/25 15:09 BP 130/68 09/10/25 15:09 Pulse Ox 96 09/10/25 15:09 O2 Del Method Room Air 09/10/25 15:09 BMI result Body Mass Index 37.9 Const: General: cooperative, healthy appearing, comfortable and no acute distress Orientation/consciousness: patient oriented x3 Limitations: no limitations HEENT: Head: Yes normal to inspection Ears: hearing grossly normal bilaterally and TM's normal bilaterally General nose exam: Normal external nose present Face and sinus: Yes normal facial exam Mouth: Normal oral and palatal mucosa present Throat: Yes posterior oropharynx normal, Yes tonsils normal and Yes uvula midline Eyes: General: appearance normal, both eyes and all related structures Pupils: Equal, round and reactive pupils present Neck: Neck: Yes normal visual inspection, Yes full ROM, Yes no lymphadenopathy and Yes no meningeal signs Chest: Chest palpation & inspection: normal inspection of the chest Resp: Effort & Inspection: normal respiratory effort Auscultation: clear to auscultation bilaterally Cardio: Rate: regular rate Rhythm: regular rhythm Peripheral pulses: Peripheral pulses 2+ throughout GI: Inspection: Yes normal to inspection Palpation (GI): Soft to palpation and nontender Auscultation: normal bowel sounds Back/Spine/Pelvis: Thoracic/Lumbar Spine: thoracic and lumbar spine normal to inspection Skin: General skin exam: no rashes or lesions noted Neuro: General: patient oriented x3, no meningeal signs, no focal motor deficits and normal sensation to monofilament Cranial nerves: Yes Equal, round and reactive pupils present Cognition (Neuro): normal cognition Speech: No Abnormal speech present Gait exam (Neuro): Normal gait present Motor exam (neuro): 5/5 motor strength present throughout Extrem: General: Yes normal to inspection, Yes no calf tenderness and No edema Course Course Course Narrative: This is a Rapid Medical Examination (RME) performed by Christie Calero NP in triage. Full assessment, plan deferred to chief librarian extension department. 29-year-old male patient history of asthma, anxiety, depression, prediabetes presents to the ED for evaluation of subjective fever ongoing for 2 days, diarrhea, without nausea, vomiting. No black, tarry stools, no blood in the stool. Poor p.o. intake. No abdominal pain. No body aches. Does endorse sore throat, nasal congestion. His kids at home are also sick. Plan: Viral swab, Strep swab. Reevaluation(s) Reevaluation #1: 1439-Orthos negative Reevaluation #2: 1500-Influenza A is positive. testing for influenza B, RSV, COVID and strep are negative. Patient is well-hydrated appearing his orthostatics were negative. He is concerned that he has not had much to eat in the last 48 hours but he is drinking fluids. I recommend he continue to force fluids and advance his diet as tolerated. Reviewed worrisome signs and symptoms of when to return to the emergency room. Comfortable plan for discharge home. Medical Decision Making Medical Decision Making [facility] Narrative: 29-year-old male who denies any medical history presents to the emergency room with 2 days of diarrhea, fever and sore throat. Patient reports tactile fevers. He has had 14 episodes of diarrhea in the last 2 days. He reports decreased appetite and loss of taste and smell. He denies any nausea, vomiting. He does have a sore throat. No difficulty breathing or swallowing. No skin rash, neck pain, neck stiffness, cough, chest pain. His children are sick at home with similar symptoms Abdomen soft nontender. Patient has mild tachycardia but appears well hydrated. He does report feeling generally weak and dizzy with position changes and so I will obtain orthostatic vital signs. I will send viral testing and reassess. Differential Diagnosis Differential Diagnoses: The differential diagnosis associated with the presentation includes viral syndrome, influenza Admission/Observation Consideration of admission/observation: Escalation of care including admission/observation considered Influenza a positive. No hypoxia or tachypnea requiring supplemental oxygen and or admission. Lab Data [facility] Lab Attestation statement: I reviewed the patient's lab results. Labs: Lab Results 09/10/25 Range/Units 14:08 Influenza Type A (PCR) POSITIVE A (Negative) Influenza Type B (PCR) NEGATIVE (Negative) RSV RNA Qual (PCR) NEGATIVE (Negative) SARS-CoV-2 RNA (RT-PCR) NEGATIVE (Negative) S. pyogenes GrpA SAROJ Negative (Negative) Prescription Management I considered prescription management with: Antiviral Discharge Plan Discharge Clinical Impression: Influenza A Patient Disposition: Home, Self-Care Instructions: Influenza (ED) Additional Instructions: Your testing for influenza a is positive Your testing for influenza B, RSV and COVID are negative Your testing for strep is negative Alternate Motrin and Tylenol for any pain or fever, increase fluids, rest Prescriptions: No Action nicotine (polacrilex) 4 mg gum 4 mg PO Q2-3H PRN bupropion HCl 150 mg tablet extended release 24 hr 150 mg PO DAILY ketoconazole 2 % cream topical DAILY albuterol sulfate [Ventolin HFA] 90 mcg/actuation HFA aerosol inhaler 2 puff inhalation Q4H PRN (Reason: wheezing) clonidine HCl 0.1 mg tablet 0.1 mg PO BEDTIME PRN (Reason: insomnia) multivitamin Tablet 1 tab PO QAM acetaminophen 500 mg tablet 500 mg PO Q6H PRN (Reason: mild pain) Interventions: ED Discharge Assessment Last Done: 09/10/25 15:09 Discharge Date/Time: 09/10/25 15:11 Print Language: Slovenian
[2025-09-10 14:03] VITALS: BP 150/106; PULSE 106; RESP 16; TEMP 36.6; O2SAT 94; BMI 37.9
--- OUTSIDE RECORDS SUMMARY | 2025-09-10 14:14 | XMS_ITS | Encounter Summary ---
Author Organization [employer] Address [address] [place] [address] Care Team Providers Care Industrial Electrician Name Role Phone Gwen Claudio MD Primary Care Provider [phone] Encounter Details Date Type Department Care Team (Late st Contact Info) Description 12/17/2023 Orders Only [facility] [address] [place], [place] [phone] Gwen Claudio MD [address] [place], [place] [phone] Elevated blood pressure reading in office without [...] as of this encounter Plan of Treatment Scheduled Orders Name Type Priority Associated Diagnoses [...] disease documented in this encounter Care Teams Industrial Electrician Relationship Specialty Start Date End Date Gwen Claudio MD [address] [place] [id number] PCP - General Family Medicine 10/03/14 documented as of this encounter
--- OUTSIDE RECORDS SUMMARY | 2025-09-10 14:14 | XMS_ITS | Encounter Summary ---
Author Organization [employer] Address [address] [place] [address] Care Team Providers Care Chinese Language Professor Name Role Phone Gwen Claudio MD Primary Care Provider [phone] Reason for Visit * Reason Comments Med Refill Encounter Details Date Type Department Care Team (Late st Contact Info) Description 06/15/2025 Refill [facility] [address] [place], [place] [phone] Gwen Claudio MD [address] [place], [place] [phone] Social History Tobacco Use Types Packs/Day Years Used Date Smoking Tobacco: Every Day Cigarettes Smokeless Tobacco: Never Depression Answer Date Recorded Patient Health Questionnaire-9 Score 8 11/28/2024 Patient Health Questionnaire-9 Score 8 11/28/2024 Last PHQ-9: Questionnaire Data Not on file 0 11/28/2024 Housing Stability Answer Date Recorded What is your housing situation today? I have hood biggs 03/21/[address] you li ve. Do you have problems with any of the following? None of the above 03/21/2025 Food Insecurity Answer Date Recorded Within the past 12 months, y ou worried that your food would run out before you got money to buy more: Never True 03/21/2025 Within the past 12 months,th e food you bought just didn't last and you didn't have enough money to get more: Never True 09/2024 Transportation Answer Date Recorded In the past 12 months, has l ack of transportation kept you from medical appts, meetings, work or from getting things needed for daily living? No 03/21/2025 Utilities Answer Date Recorded In the past 12 months, has t he electric, gas, oil or water company threatened to shut off services in your home? No 03/21/2025 Depression Answer Date Recorded Patient Health Questionnaire-2 [...] as of this encounter Plan of Treatment Not on file documented as of this encounter Visit Diagnoses Not on filedocumented in this encounter Additional Health Concerns Assessment Noted Time PHQ-9 Depression Total Score: 8 11/29/19 25 3:01 PM EDT documented as of this encounter Care Teams Chinese Language Professor Relationship Specialty Start Date End Date Gwen Claudio MD [address] [place] [address] PCP - General Family Medicine 10/03/14 documented as of this encounter
--- OUTSIDE RECORDS SUMMARY | 2025-09-10 14:14 | XMS_ITS | Encounter Summary ---
Author Organization [employer] Address [address] [place] [address] Care Team Providers Care Mounter Sousaphones Name Role Phone Gwen Claudio MD Primary Care Provider [phone] Encounter Details Date Type Department Care Team (Late st Contact Info) Description 07/31/2023 Abstract [facility] [address] [place], [place] [phone] Jaspreet Sanders DDS [address] [place], [place] [phone] Social History Tobacco Use Types Packs/Day Years [...] on filedocumented in this encounter Care Teams Mounter Sousaphones Relationship Specialty Start Date End Date Gwen Claudio MD [address] [place] [address] PCP - General Family Medicine 10/03/14 documented as of this encounter
--- OUTSIDE RECORDS SUMMARY | 2025-09-10 14:14 | XMS_ITS | Encounter Summary ---
Author Organization [employer] Address [address] [place] [address] Care Team Providers Care Rig Mechanic Name Role Phone Gwen Claudio MD Primary Care Provider [phone] Reason for Referral * Imaging (STAT) - Closed Specialty Diagnoses / Procedures Referred By Kashmir up Referred To Contact Radiology Diagnoses Closed nondisplaced fracture of scaphoid of left wrist, unspecified portion of scaphoid, initial encounter Procedures CT Wrist w/o Contrast Left Gwen Claudio MD [address] [place] [address] Phone: tel: fax: [address] [phone] Phone: tel: fax: Referral ID Status Reason Start Date Expiration Date Visits Re quested Visits Authorized [id number] Closed 02/04/2024 02/03/2025 1 1 * Imaging (STAT) - Canceled Specialty Diagnoses / Procedures Referred By Kashmir up Referred To Contact Radiology Diagnoses Closed nondisplaced fracture of scaphoid of left wrist, unspecified portion of scaphoid, initial encounter Procedures CT Hand w/o Contrast Left Gwen Claudio MD [address] [place] [address] Phone: tel: fax: [address] [phone] Phone: tel: fax: Referral ID Status Reason Start Date Expiration Date V isits Requested Visits Authorized [id number] Canceled 02/04/2024 02/03/2025 1 1 Encounter Details Date Type Department Care Team (Late st Contact Info) Description 02/04/2024 Orders Only [facility] [address] [place] [address] Gwen Claudio MD [address] [place] [address] Closed nondisplaced fracture of scaphoid of left [...] Primary documented in this encounter Care Teams Rig Mechanic Relationship Specialty Start Date End Date Gwen Claudio MD [address] [place] [address] PCP - General Family Medicine 10/03/14 documented as of this encounter
--- OUTSIDE RECORDS SUMMARY | 2025-09-10 14:14 | XMS_ITS | Encounter Summary ---
Author Organization [employer] Address [address] [place] [address] Care Team Providers Care Lead Instructor/Flight Attendant Name Role Phone Gwen Claudio MD Primary Care Provider [phone] Encounter Details Date Type Department Care Team (Late st Contact Info) Description 08/18/2023 Abstract [facility] ADULT D[facility] [address] [place] [address] Donis Mcguire, RUBY [address] [place] [address] Social History Tobacco Use Types Packs/Day Years [...] on filedocumented in this encounter Care Teams Lead Instructor/Flight Attendant Relationship Specialty Start Date End Date Gwen Claudio MD [address] [place] [address] PCP - General Family Medicine 10/03/14 documented as of this encounter
--- OUTSIDE RECORDS SUMMARY | 2025-09-10 14:14 | XMS_ITS | Encounter Summary ---
Author Organization [employer] Address [address] [place] [address] Care Team Providers Care Registrar Museum Name Role Phone Gwen Claudio MD Primary Care Provider [phone] Encounter Details Date Type Department Care Team (Latest Contact Info) Description 01/27/2022 Abstract [facility] Dental, Provider, DDS Social History Tobacco [...] on filedocumented in this encounter Care Teams Registrar Museum Relationship Specialty Start Date End Date Gwen Claudio MD [address] [place] [id number] PCP - General Family Medicine 10/03/14 documented as of this encounter
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
[2025-09-10 14:30] LABS: Strep A Nucleic Acid Negative (Negative)
[2025-09-10 14:34] VITALS: BP 135/87; BP 145/80; PULSE 102; PULSE 91
[2025-09-10 14:36] VITALS: BP 142/95; PULSE 103
[2025-09-10 14:49] LABS: Resp Syncy Virus RNA Qual PCR NEGATIVE (Negative); SARS COV2 PCR INHOUSE NEGATIVE (Negative)
[2025-09-10 15:09] VITALS: BP 130/68; PULSE 97; RESP 18; TEMP 36.9; O2SAT 96
== END 2025-09-10 15:11 | disposition home or self-care (01) ==
PROVIDERS: Nurse Practitioner; Emergency Provider Emergency Medicine Emergency Medical Services; PCP Family Medicine
DX: J10.1 Influenza due to other identified influenza virus with other respiratory manifestations (principal); J45.909 Unspecified asthma, uncomplicated; F17.210 Nicotine dependence, cigarettes, uncomplicated; Z79.899 Other long term (current) drug therapy
CPT/HCPCS: 87637; 87651; 99283; 99284